=== PATIENT | female | born 1945 | race African-American/Black ===

== ENCOUNTER 2019-05-22 15:26 | Inpatient (IN) | payer MEDICARE ==
[~2019-05-22] VITALS: Ht 167.6 cm; Wt 48.8 kg
[2019-05-22] MEDS ORDERED: Omnipaque-300 100ml vial INJ PRN (15:45)
[2019-05-22] MEDS ORDERED: Piperacillin/Tazobactam 3.375 GM in NS 110 ML IVPB ONE (15:45)
[2019-05-22] MEDS ORDERED: Vancomycin 1 GM in NS 275 ML IV ONE (15:45)
--- NOTE | 2019-05-22 16:00 | NUR ---
ED Nurse Note:pt. was BIBA from SNF with possible infection and left groin dranage, she has right BKA, pt. is A/Ox2, blood and urine sent to labs, given iv fluids and antibiotics
[2019-05-22 16:30] VITALS: BP 122/68
--- NOTE | 2019-05-22 16:33 | Emergency Room Report ---
History of Present Illness General Chief Complaint: General Complaint Source: Patient Present Illness HPI 73-year-old female history of stage IV decubitus ulcer history of Alzheimer's, presents with dislodged left groin surgical drain patient with an abscess that had IR drainage, unknown if fevers or chills patient presents for surgical drain management, unknown aggravating relieving factor severity is mild, unknown start time Allergies: Coded Allergies: No Known Allergies (Unverified , 05/22/19) Patient History Limited by: medical condition - Alzheimer's Past Medical History: see triage record Reviewed Nursing Documentation: PMH: Agreed; PSxH: Agreed Nursing Documentation-PMH Past Medical History: No History, Except For Hx Hypertension: Yes Hx Diabetes: Yes Review of Systems All Other Systems: limited - Alzheimer's dementia Physical Exam Vital Signs Date Time Temp Pulse Resp B/P (MAP) Pulse Ox O2 Delivery O2 Flow Rate FiO2 05/22/19 15:27 Room Air Sp02 EP Interpretation: reviewed, normal General Appearance: alert, moderate distress, Chronically Ill Head: normocephalic, atraumatic Eyes: bilateral eye PERRL, bilateral eye EOMI ENT: uvula midline, moist mucus membranes Neck: supple, thyroid normal, supple/symm/no masses Respiratory: lungs clear, no respiratory distress, no retraction, no accessory muscle use Cardiovascular #1: normal peripheral pulses, regular rate, rhythm, no edema, no gallop, no murmur Gastrointestinal: non tender, soft, no guarding, no rebound Musculoskeletal: other - Stage IV decubitus ulcer, left groin drain partially dislodged however remains inside the skin Neurologic: alert, responsive Psychiatric: mood/affect normal Skin: no rash, warm/dry Medical Decision Making Diagnostic Impression: Primary Impression: Disruption of tissue around surgical drain Qualified Codes: T81.32XA - Disruption of internal operation (surgical) wound , not elsewhere classified, initial encounter Additional Impressions: Dehydration UTI (urinary tract infection) Qualified Codes: T83.511A - Infection and inflammatory reaction due to indwelling urethral catheter, initial encounter; N39.0 - Urinary tract infection , site not specified Abscess of groin, left ER Course 73-year-old female presents with dehydration, possible dislodged groin drain, will start broad-spectrum antibiotics and fluids Patient admitted to Dr. Lau No evidence of sepsis or endorgan dysfunction no fever no chills, heart rate is stable, however patient does have a urinary tract infection as well as his dehydration Patient also with abscess Dr. Lau aware will consult surgery PRN Laboratory Tests Test 05/22/19 15:40 White Blood Count 10.8 K/UL (4.8-10.8) Red Blood Count 4.12 M/UL (4.20-5.40) L Hemoglobin 9.9 G/DL (12.0-16.0) L Hematocrit 32.8 % (37.0-47.0) L Mean Corpuscular Volume 80 FL (80-99) Mean Corpuscular Hemoglobin 24.2 PG (27.0-31.0) L Mean Corpuscular Hemoglobin Concent 30.4 G/DL (32.0-36.0) L Red Cell Distribution Width 19.1 % (11.6-14.8) H Platelet Count 528 K/UL (150-450) H Mean Platelet Volume 5.4 FL (6.5-10.1) L Neutrophils (%) (Auto) 76.3 % (45.0-75.0) H Lymphocytes (%) (Auto) 17.8 % (20.0-45.0) L Monocytes (%) (Auto) 3.9 % (1.0-10.0) Eosinophils (%) (Auto) 1.3 % (0.0-3.0) Basophils (%) (Auto) 0.7 % (0.0-2.0) Prothrombin Time 11.0 SEC (9.30-11.50) Prothrombin Time INR 1.0 (0.9-1.1) Activated Partial Thromboplast Time 32 SEC (23-33) Urine Color Yellow Urine Appearance Cloudy Urine pH 9 (4.5-8.0) Urine Specific [place] 1.015 (1.005-1.035) Urine Protein 3+ (NEGATIVE) H Urine Glucose (UA) Negative (NEGATIVE) Urine Ketones 1+ (NEGATIVE) H Urine Blood 3+ (NEGATIVE) H Urine Nitrite Positive (NEGATIVE) H Urine Bilirubin Negative (NEGATIVE) Urine Urobilinogen Normal MG/DL (0.0-1.0) Urine Leukocyte Esterase 3+ (NEGATIVE) H Urine RBC 10-15 /HPF (0 - 2) H Urine WBC 0-2 /HPF (0 - 2) Urine Squamous Epithelial Cells None /LPF (NONE/OCC) Urine Triple Phosphate Crystals Moderate /LPF (NONE) H Urine Bacteria Many /HPF (NONE) H Sodium Level 141 MMOL/L (136-145) Potassium Level 3.7 MMOL/L (3.5-5.1) Chloride Level 103 MMOL/L (98-107) Carbon Dioxide Level 25 MMOL/L (21-32) Anion Gap 13 mmol/L (5-15) Blood Urea Nitrogen 16 mg/dL (7-18) Creatinine 0.6 MG/DL (0.55-1.30) Estimate Glomerular Filtration Rate > 60 mL/min (>60) Glucose Level 204 MG/DL (74-106) H Lactic Acid Level 2.20 mmol/L (0.4-2.0) H Calcium Level 8.7 MG/DL (8.5-10.1) Phosphorus Level 2.6 MG/DL (2.5-4.9) Magnesium Level 2.0 MG/DL (1.8-2.4) Total Bilirubin 0.2 MG/DL (0.2-1.0) Aspartate Amino Transferase (AST) 18 U/L (15-37) Alanine Aminotransferase (ALT) 18 U/L (12-78) Alkaline Phosphatase 125 U/L (46-116) H Total Creatine Kinase 22 U/L (26-308) L Troponin I 0.000 ng/mL (0.000-0.056) Pro-B-Type Natriuretic Peptide 304 pg/mL (0-125) H Total Protein 7.1 G/DL (6.4-8.2) Albumin 2.0 G/DL (3.4-5.0) L Globulin 5.1 g/dL Albumin/Globulin Ratio 0.4 (1.0-2.7) L Lipase 146 U/L (73-393) EKG Diagnostic Results EKG Time: 15:56 EP Interpretation: NSR, rate 86, QTc 428, no acute ST elevations, normal axis Rhythm Strip Diag. Results Rhythm Strip Time: 16:32 EP Interpretation: yes Rate: 87 Rhythm: NSR, no PVC's, no ectopy Chest X-Ray Diagnostic Results Chest X-Ray Diagnostic Results : Chest X-Ray Ordered: Yes # of Views/Limited/Complete: 1 View Indication: Other - Preop EP Interpretation: Yes Interpretation: no consolidation, no effusion, no pneumothorax, no acute cardiopulmonary disease Impression: No acute disease Electronically Signed by: Ahmet Yadav MD CT/MRI/US Diagnostic Results CT/MRI/US Diagnostic Results : Impression Preliminary Findings Only See Final Report For Complete Findings CT ABDOMEN & PELVIS With Contrast: Fluid collection within the left adductor musculature measuring 5.5 x 3.6 x 6.2 cm. Surrounding inflammation suggests this may represent an abscess. Moderate volume of impacted stool within the rectum with mucosal thickening and fat stranding in the presacral space, likely stercoral colitis. No perforation or pneumatosis. No acute process within the solid organs. Radiologist: Timoteo Hurst MD Study ready at 17:57 and initial results transmitted at 18:52 Last Vital Signs Date Time Temp Pulse Resp B/P (MAP) Pulse Ox O2 Delivery O2 Flow Rate FiO2 05/22/19 15:27 Room Air Disposition: ADMITTED INPATIENT Condition: Stable Referrals: Juan Lau MD (PCP) Ahmet Yadav MD May 22, 2019 16:33
[2019-05-22 16:34] LABS: BASOPHILS % (AUTO) 0.7 % (0.0-2.0); EOSINOPHILS % (AUTO) 1.3 % (0.0-3.0); HEMATOCRIT 32.8 % (37.0-47.0); HEMOGLOBIN 9.9 G/DL (12.0-16.0); LYMPHOCYTES % (AUTO) 17.8 % (20.0-45.0); MEAN CORPUSCULAR VOLUME 80 FL (80-99); MONOCYTES % (AUTO) 3.9 % (1.0-10.0); NEUTROPHILS % (AUTO) 76.3 % (45.0-75.0); PLATELET COUNT 528 K/UL (150-450); RED BLOOD COUNT 4.12 M/UL (4.20-5.40); RED CELL DISTRIBUTION WIDTH 19.1 % (11.6-14.8); WHITE BLOOD COUNT 10.8 K/UL (4.8-10.8)
[2019-05-22 16:36] LABS: APPEARANCE,URINE CLOUDY; BILIRUBIN, URINE NEGATIVE (NEGATIVE); GLUCOSE, URINE (UA) NEGATIVE (NEGATIVE); KETONES,URINE 1+ (NEGATIVE); LEUKOCYTE ESTERASE ,URINE 3+ (NEGATIVE); NITRITE,URINE POSITIVE (NEGATIVE); PH,URINE 9 (4.5-8.0); PROTEIN,URINE 3+ (NEGATIVE); UROBILINOGEN,URINE NORMAL MG/DL (0.0-1.0)
[2019-05-22 16:39] LABS: COLOR,URINE YELLOW
--- NOTE | 2019-05-22 16:43 | Diagnostic Imaging Report ---
Indication: Dyspnea Comparison: None A single view chest radiograph was obtained. Findings: No definite infiltrate or pulmonary vascular congestion identified. The heart is enlarged. The aorta is mildly enlarged consistent with atherosclerotic vascular disease. The bones are osteopenic. There are thoracic vertebral enthesophytes at multiple levels. Impression: No acute disease
[2019-05-22 16:55] LABS: ANION GAP 13 mmol/L (5-15); BLOOD UREA NITROGEN 16 mg/dL (7-18); CALCIUM 8.7 MG/DL (8.5-10.1); CARBON DIOXIDE 25 MMOL/L (21-32); CHLORIDE 103 MMOL/L (98-107); CREATININE 0.6 MG/DL (0.55-1.30); POTASSIUM 3.7 MMOL/L (3.5-5.1); SODIUM 141 MMOL/L (136-145)
--- NOTE | 2019-05-22 17:04 | NUR ---
ED Nurse Note:pt. came with sacral decube, left heel pressure sore, left lower leg vascular wound and right resurfaced BKA, wound pictures been taken and downloaded to computer
[2019-05-22 17:05] LABS: ALANINE AMINOTRANSFERASE 18 U/L (12-78); ALBUMIN/GLOBULIN RATIO 0.4 (1.0-2.7); ALKALINE PHOSPHATASE 125 U/L (46-116); ASPARTATE AMINO TRANSFERASE 18 U/L (15-37); BILIRUBIN,TOTAL 0.2 MG/DL (0.2-1.0); CREATINE KINASE 22 U/L (26-308); PHOSPHORUS 2.6 MG/DL (2.5-4.9)
[2019-05-22] MEDS ORDERED: ACETAMINOPHEN325 M1 ORAL (17:16)
[2019-05-22] MEDS ORDERED: MAGNESIUM2 GM/50 ML IV (17:16)
[2019-05-22] MEDS ORDERED: ONDANSETRON4 MG/2 M2 IVP (17:16)
--- NOTE | 2019-05-22 17:25 | NUR ---
ED Nurse Note: spoke with tricia from [facility], will fax over medlist to er
[2019-05-22] MEDS ORDERED: Morphine Sulfate 2mg/ml Inj(IV/IM USE ONLY) IVP PRN (18:15)
[2019-05-22] MEDS ORDERED: LORazepam 1mg tab ORAL PRN (18:15)
[2019-05-22 18:43] VITALS: BP 113/53
--- NOTE | 2019-05-22 18:53 | Diagnostic Imaging Report ---
Clinical Indication: Abdominal pain. Technique: No oral contrast utilized, per emergency room physician request IV administration nonionic contrast. Venous phase spiral acquisition obtained through the abdomen and pelvis. Multiplanar reconstructions were generated. Total dose length product 266 mGycm. CTDIvol(s) 5 mGy. Dose reduction achieved using automated exposure control Comparison: none Findings: In the left inferior inguinal region, there is a low-attenuation area just deep to the inguinal crease extending into the thigh which measures 6 cm transverse by 3.2 cm AP by 2.8 cm craniocaudad. This is surrounded by a thicker rim of enhancing tissue. There is also considerable infiltration of the subcutaneous fat and musculature in this area. There are a few slightly prominent lymph nodes noted. The rectum is mildly distended by stool. This measures 7.5 cm transverse. There is equivocal mild thickening of the wall. The appendix is normal. There is no evidence of diverticulosis or diverticulitis. There are midline fascial sutures noted. No small bowel distention or small bowel wall thickening. The distal esophagus, stomach, duodenum are unremarkable. No free or loculated intraperitoneal gas or fluid is evident. The liver demonstrates a subcentimeter low-attenuation lesion within segment 8 which is too small to characterize. The gallbladder is nondistended, unremarkable. Some calcifications are seen in the left hepatic lobe. No biliary ductal dilatation. The pancreas, spleen, adrenals are unremarkable. A small calculus is seen in the upper pole left renal collecting system. No ureteral calculi, hydronephrosis, or hydroureter. The bladder contains a Barrzaa catheter. A small amount of gas within the bladder lumen likely relates to the Barraza catheterization. There is some scarring in the subcutaneous fat lateral to the intertrochanteric right femur. There is generalized mild edema of both proximal thighs, particularly the left. The bones demonstrate mild lumbar dextro scoliotic deformity. There is very mild anterior offset of L4 on L5. There are mild retrosacral and retrococcygeal decubitus changes. There does appear to be advanced chronic erosive changes of the coccyx. Impression: 6 x 3.2 x 2.8 cm fluid collection in the left inguinal region, likely represents an abscess. There is evidence of surrounding cellulitis Erosive changes of the coccyx. Given only minimal surrounding inflammatory change, suspect chronic. Rectum is distended by stool. There is mild wall thickening, could indicate stercoral proctitis. Evidence of prior midline abdominal surgery Subcentimeter low-attenuation right lobe liver lesion, too small to characterize, most likely benign cyst or bile hamartoma. No further follow-up necessary Other findings as noted, including lumbar dextroscoliosis, Barraza catheter, nonobstructive left upper pole renal calculus This essentially agrees with the preliminary interpretation provided overnight by [facility], with some additional none significant findings. The CT scanner at [facility] is accredited by the [employer] and the scans are performed using protocols designed to limit radiation exposure to as low as reasonably achievable to attain images of sufficient resolution adequate for diagnostic evaluation.
--- NOTE | 2019-05-22 19:30 | NUR ---
ED Nurse Note: Patient resting comfortably, vital signs stable. Will continue to monitor.
[2019-05-22 19:53] VITALS: BP 111/51
--- NOTE | 2019-05-22 20:29 | NUR ---
ED Nurse Note: Called and rendered report to Kassi AMBROCIO.
--- NOTE | 2019-05-22 20:33 | NUR ---
NURSE NOTES: Received telephone report from CRISTÓBAL Mckinney (ED)
[2019-05-22 21:00] VITALS: BP 155/85
--- NOTE | 2019-05-22 21:00 | NUR ---
NURSE NOTES: Received pt via gurney. Pt in bed, a&ox2, in room air. No s/s of acute distress & no c/o pain. Skin check done. Noted sacral ulcer, left foot ulcer & medial left leg lesion. Left arm contracture noted. F/C intact & draining yellow urine to gravity. Left groin drain noted. IV site intact & S/L'd. Pt unable to sign belongings sheet. Oriented pt to hospital room & facility. Dr. Lau already put in admission orders for pt. Bed in lowest position, call light within reach. Will continue to monitor. Addendum: 05/23/19 at 0210 by Kassi Roberts RN CORRECTION: A&ox1 to name
--- NOTE | 2019-05-22 21:04 | NUR ---
ED Nurse Note: Patient transported to floor without incident.
[2019-05-22] MEDS: Docusate 100mg cap ORAL SCH (22:05)
[2019-05-22] MEDS: Enoxaparin 30mg Inj SUBQ SCH (22:06)
[2019-05-22] MEDS: Zoysn 3.37gm in NS 100ML IVPB SCH ×2 (22:08→22:40)
--- NOTE | 2019-05-22 22:14 | History and Physical ---
History of Present Illness General Date patient seen: May 22, 2019 Time patient seen: 18:00 Reason for Hospitalization: General ComplaintLeft groin drain malfunction Present Illness HPI Patient is referred to the ER from [facility] due to increased drainage from a L IR placed pigtail drain that was originally placed more than a month ago at OSH ( [facility] ) due to abscess colletion. The patient is demented at baseline and her DPOA is her sister Vidhya [phone] or [phone]. The patient has also a stage IV sacral ulcer and is now admitted to the hospital for surgical evaluation and management. History is limited as she is a poor historian. I spoke with the ED attending and CT abdomen and pelvis was requested along with antibiotics. ED Course: Her vital signs are stable, no hypotension or tachycardia. IV Zozyn and Vancomycin started. IVF given and lactate 2.2 Allergies: Coded Allergies: No Known Allergies (Unverified , 05/22/19) Medication History Scheduled Ondansetron* (Zofran 4 Mg/2 Ml Vial*), 4 MG IVP Q6H, (Reported) Scheduled PRN Acetaminophen* (Acetaminophen 325MG Tablet*), 650 MG ORAL Q4H PRN for For Pain, (Reported) Miscellaneous Medications Magnesium Sulfate (Magnesium Sulfate), 2 GM IV, (Reported) Patient History Healthcare decision maker Resuscitation status Advanced Directive on File Review of Systems Constitutional: Reports: see HPI Eye: Reports: no symptoms ENT: Reports: no symptoms Respiratory: Reports: no symptoms Cardiovascular: Reports: no symptoms Gastrointestinal: Reports: no symptoms Musculoskeletal: Reports: see HPI, other Skin: Reports: no symptoms Psychiatric: Reports: no symptoms Neurological: Reports: no symptoms Endocrine: Reports: no symptoms Hematologic/Lymphatic: Reports: no symptoms Physical Exam General Appearance: no apparent distress Lines, tubes and drains: peripheral HEENT: normocephalic, atraumatic Neck: non-tender Respiratory/Chest: lungs clear Breasts: no masses Cardiovascular/Chest: normal peripheral pulses Abdomen: normal bowel sounds Extremities: normal range of motion, other - LEFT GROIN PIGTAIL with drainage brownish color Skin Exam: normal pigmentation, other - sacral wound 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 Last 24 Hour Vital Signs Date Time Temp Pulse Resp B/P (MAP) Pulse Ox O2 Delivery O2 Flow Rate FiO2 05/22/19 21:04 98.8 84 15 111/51 100 Room Air 05/22/19 19:53 98.8 84 15 111/51 100 Room Air 05/22/19 18:43 98.0 76 20 113/53 99 Room Air 05/22/19 16:30 86 20 Room Air 05/22/19 16:30 86 20 122/68 97 Room Air 05/22/19 15:27 Room Air Laboratory Tests Test 05/22/19 15:40 05/22/19 17:45 White Blood Count 10.8 K/UL (4.8-10.8) Red Blood Count 4.12 M/UL (4.20-5.40) L Hemoglobin 9.9 G/DL (12.0-16.0) L Hematocrit 32.8 % (37.0-47.0) L Mean Corpuscular Volume 80 FL (80-99) Mean Corpuscular Hemoglobin 24.2 PG (27.0-31.0) L Mean Corpuscular Hemoglobin Concent 30.4 G/DL (32.0-36.0) L Red Cell Distribution Width 19.1 % (11.6-14.8) H Platelet Count 528 K/UL (150-450) H Mean Platelet Volume 5.4 FL (6.5-10.1) L Neutrophils (%) (Auto) 76.3 % (45.0-75.0) H Lymphocytes (%) (Auto) 17.8 % (20.0-45.0) L Monocytes (%) (Auto) 3.9 % (1.0-10.0) Eosinophils (%) (Auto) 1.3 % (0.0-3.0) Basophils (%) (Auto) 0.7 % (0.0-2.0) Prothrombin Time 11.0 SEC (9.30-11.50) Prothromb Time International Ratio 1.0 (0.9-1.1) Activated Partial Thromboplast Time 32 SEC (23-33) Urine Color Yellow Urine Appearance Cloudy Urine pH 9 (4.5-8.0) Urine Specific [place] 1.015 (1.005-1.035) Urine Protein 3+ (NEGATIVE) H Urine Glucose (UA) Negative (NEGATIVE) Urine Ketones 1+ (NEGATIVE) H Urine Blood 3+ (NEGATIVE) H Urine Nitrite Positive (NEGATIVE) H Urine Bilirubin Negative (NEGATIVE) Urine Urobilinogen Normal MG/DL (0.0-1.0) Urine Leukocyte Esterase 3+ (NEGATIVE) H Urine RBC 10-15 /HPF (0 - 2) H Urine WBC 0-2 /HPF (0 - 2) Urine Squamous Epithelial Cells None /LPF (NONE/OCC) Urine Triple Phosphate Crystals Moderate /LPF (NONE) H Urine Bacteria Many /HPF (NONE) H Sodium Level 141 MMOL/L (136-145) Potassium Level 3.7 MMOL/L (3.5-5.1) Chloride Level 103 MMOL/L (98-107) Carbon Dioxide Level 25 MMOL/L (21-32) Anion Gap 13 mmol/L (5-15) Blood Urea Nitrogen 16 mg/dL (7-18) Creatinine 0.6 MG/DL (0.55-1.30) Estimat Glomerular Filtration Rate > 60 mL/min (>60) Glucose Level 204 MG/DL (74-106) H Lactic Acid Level 2.20 mmol/L (0.4-2.0) H 1.70 mmol/L (0.66-2.22) Calcium Level 8.7 MG/DL (8.5-10.1) Phosphorus Level 2.6 MG/DL (2.5-4.9) Magnesium Level 2.0 MG/DL (1.8-2.4) Total Bilirubin 0.2 MG/DL (0.2-1.0) Aspartate Amino Transf (AST/SGOT) 18 U/L (15-37) Alanine Aminotransferase (ALT/SGPT) 18 U/L (12-78) Alkaline Phosphatase 125 U/L (46-116) H Total Creatine Kinase 22 U/L (26-308) L Troponin I 0.000 ng/mL (0.000-0.056) Pro-B-Type Natriuretic Peptide 304 pg/mL (0-125) H Total Protein 7.1 G/DL (6.4-8.2) Albumin 2.0 G/DL (3.4-5.0) L Globulin 5.1 g/dL Albumin/Globulin Ratio 0.4 (1.0-2.7) L Lipase 146 U/L (73-393) Microbiology Date/Time Source Procedure Growth Status 05/22/19 18:00 Rectum Received Height (Feet): 5 Height (Inches): 6.00 Weight (Pounds): 110 Medications Current Medications Medications (Trade) Dose Ordered Sig/Jules Route PRN Reason Start Time Stop Time Status Last Admin Dose Admin Acetaminophen (Tylenol) 650 mg Q4H PRN ORAL Mild Pain (Pain Scale 1-3) 05/22/19 18:15 06/21/19 18:14 Dextrose (Dextrose 50%) 25 ml Q30M PRN IV Hypoglycemia 05/22/19 18:15 06/21/19 18:14 Dextrose (Dextrose 50%) 50 ml Q30M PRN IV Hypoglycemia 05/22/19 18:15 06/21/19 18:14 Docusate Sodium (Colace) 100 mg EVERY 12 HOURS ORAL 05/22/19 21:00 06/21/19 20:59 Enoxaparin Sodium (Lovenox) 30 mg Q24H SUBQ 05/22/19 21:00 06/21/19 20:59 Famotidine (Pepcid) 20 mg BID ORAL 05/23/19 09:00 06/22/19 08:59 Iohexol (OMNIPAQUE-300 100ml) 100 ml NOW PRN INJ Radiology Procedure 05/22/19 15:45 05/24/19 15:36 Lorazepam (Ativan) 1 mg Q4H PRN ORAL For Anxiety 05/22/19 18:15 05/29/19 18:14 Morphine Sulfate (Morphine Sulfate) 2 mg Q4H PRN IVP Moderate Pain (Pain Scale 4-6) 05/22/19 18:15 05/29/19 18:14 Ondansetron HCl (Zofran) 4 mg Q6H PRN IVP Nausea & Vomiting 05/22/19 18:15 06/21/19 18:14 Piperacillin Sod/ Tazobactam Sod 3.375 gm/Sodium Chloride 110 ml @ 27.5 mls/hr EVERY 8 HOURS IVPB 05/22/19 22:00 05/27/19 21:59 Sodium Chloride 1,000 ml @ 75 mls/hr [id number] IVLG 05/22/19 21:00 06/21/19 20:59 Vancomycin HCl (Vanco rx to dose) 1 ea DAILY PRN MISC Per rx protocol 05/22/19 18:15 06/21/19 18:14 Vancomycin HCl 500 mg/Dextrose 110 ml @ 110 mls/hr Q24H IVPB 05/23/19 16:00 05/28/19 15:59 Assessment/Plan Status: stable Assessment/Plan: 73 y/o Female with dementia, admitted from SNF with increasing drainage from a subacute pigtail drain in the left groin and sacral decubitus ulcer stage IV 1. Left groin abscess CT abdomen and pelvis: Fluid collection within the left adductor musculature measuring 5.5 x 3.6 x 6.2 cm. Surrounding inflammation suggests this may represent an abscess Surgery consultation requested with Dr. Fajardo. Await input and consideration fro OR intervention vs medical management. Continue IV Zosyn and Vancomycin for now. Will discuss with surgery. AM lactate IVF 2. Dementia Supportive care 3. Sacral decubitus stage IV Will discuss with Surgery as well. 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 Supportive care 5. FULL CODE by prior DPOA discussion. Juan Lau MD May 22, 2019 22:14
[2019-05-22] MEDS ORDERED: COREG12.5 MG ORAL (22:45)
[2019-05-22] MEDS ORDERED: CRANBERRY450 M4 PO (22:45)
[2019-05-22] MEDS ORDERED: MULTIVITAMINS1 EA14 PO (22:51)
[2019-05-22] MEDS ORDERED: COLACE100 MG ORAL (22:51)
[2019-05-22] MEDS ORDERED: SENNA8.6 M2 PO (22:51)
[2019-05-22] MEDS ORDERED: FERROUS SU300 MG/5 M ORAL (22:51)
[2019-05-22] MEDS ORDERED: PERCOCET 10-321 EAC1 ORAL (22:51)
[2019-05-22] MEDS ORDERED: PROBIOTIC1 EAC2 PO (22:51)
[2019-05-22] MEDS ORDERED: VITAMIN C500 M1 ORAL (22:54)
[2019-05-22] MEDS ORDERED: ZINC50 M1 ORAL (22:54)
--- NOTE | 2019-05-22 23:00 | NUR ---
NURSE NOTES: Left msg for Dr. Lau re: pt's list of home meds. rn call center doctor called back stating Dr. Lau is no longer in their medical group. 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 Lau' office # because they don't know.
--- NOTE | 2019-05-22 23:30 | NUR ---
NURSE NOTES: Wound pics taken. #1 Sacral ulcer, #2 partial thickness left lower leg, #3 left heel unstageable wound (eschar)
[2019-05-23] VITALS: BP 122/55
[2019-05-23] MEDS ORDERED: Piperacillin/Tazobactam 2.25 GM in D5W 55 ML IV SCH ×2
--- NOTE | 2019-05-23 02:46 | NUR ---
NURSE NOTES: Initial wound assessment done; reviewed & cosigned by CRISTÓBAL Cruz.
[2019-05-23 04:00] VITALS: BP 136/62
--- NOTE | 2019-05-23 05:10 | NUR ---
NURSE NOTES: Unable to get aerobic & anaerobic sample/wound culture from left drain. Drain is a closed system. Charge nurse aware.
--- NOTE | 2019-05-23 05:11 | NUR ---
NURSE NOTES: wound culture done on left groin. Sent down to lab. Addendum: 05/23/19 at 0613 by Kassi Roberts RN PLEASE DISREGARD NOTE.
[2019-05-23 06:41] LABS: BASOPHILS % (AUTO) 0.6 % (0.0-2.0); EOSINOPHILS % (AUTO) 2.1 % (0.0-3.0); HEMATOCRIT 28.1 % (37.0-47.0); LYMPHOCYTES % (AUTO) 26.6 % (20.0-45.0); MEAN CORPUSCULAR VOLUME 79 FL (80-99); MONOCYTES % (AUTO) 6.2 % (1.0-10.0); NEUTROPHILS % (AUTO) 64.5 % (45.0-75.0); PLATELET COUNT 466 K/UL (150-450); RED BLOOD COUNT 3.54 M/UL (4.20-5.40); RED CELL DISTRIBUTION WIDTH 17.2 % (11.6-14.8); WHITE BLOOD COUNT 10.5 K/UL (4.8-10.8)
[2019-05-23 07:03] LABS: ANION GAP 11 mmol/L (5-15); BLOOD UREA NITROGEN 9 mg/dL (7-18); CALCIUM 8.4 MG/DL (8.5-10.1); CARBON DIOXIDE 23 MMOL/L (21-32); CHLORIDE 108 MMOL/L (98-107); CREATININE 0.5 MG/DL (0.55-1.30); POTASSIUM 3.3 MMOL/L (3.5-5.1); SODIUM 142 MMOL/L (136-145)
--- NOTE | 2019-05-23 07:30 | NUR ---
HAND-OFF: Report given to CRISTÓBAL [place]/CRISÓTBAL Fischer. Rounds done.
--- NOTE | 2019-05-23 07:30 | NUR ---
NURSE NOTES: Received report from Kassi AMBROCIO. Patient is awake and oriented to self only, no acute distress noted, reporting no pain. IVF running per order. Patient has multiple dressed wounds. Drain in left groin draining purulent, foul smelling drainage, unable to collect specimen for culture due to closed system, will inform MD. Olivera catheter to gravity drainage, draining cloudy, yellow urine, per report olivera catheter was inserted prior to admission, anchored to right thigh. Side rails upx3, bed low and locked, call light within reach.
[2019-05-23 08:00] VITALS: BP 148/72
[2019-05-23] MEDS: Docusate 100mg cap ORAL SCH ×2 (09:41→20:32)
--- NOTE | 2019-05-23 11:08 | NUR ---
RD ASSESSMENT & RECOMMENDATIONS SEE CARE ACTIVITY FOR COMPLETE ASSESSMENT DAILY ESTIMATED NEEDS: Needs based on Multiple wounds/ 49kg 30-40 kcals/kg 5370-3836 total kcals 1.5-2.0 g protein/kg 73-98 g total protein 25-30 mL/kg 4538-8829 total fluid mLs NUTRITION DIAGNOSIS: Increased kcal/prot intake needs R/T wound healing as evidenced by admitted w/ multiple advanced wounds, pending evaluation. CURRENT DIET:Cardiac, mech soft ground PO DIET RECOMMENDATIONS: Liberalized REGULAR/ texture per WRAPPER STEMMER HAND ADDITIONAL RECOMMENDATIONS: * Wound healing: add MVI w/ mineral 1 tab QD, Vit C 500mg BID, ZnSO4 220mg QD x 10 days Kb 1pkt BID * Ensure Enlive TID w/ meals * Consider WRAPPER [employer]MER HAND evaluation for appropriate texture * Calibrated bedscale wt for accurate CBW * Monitor lytes, replete as needed (low K)
[2019-05-23] MEDS ORDERED: Lidocaine 1% 10mg/ml/EPI 0.01mg/ml 30ml INJ SCH (11:45)
[2019-05-23 12:00] VITALS: BP 151/85
--- NOTE | 2019-05-23 12:18 | General Progress Note ---
Assessment/Plan Status: stable Assessment/Plan: 73 y/o Female with dementia, admitted from SNF with increasing drainage from a subacute pigtail drain in the left groin and sacral decubitus ulcer stage IV 1. Left groin abscess CT abdomen and pelvis: Fluid collection within the left adductor musculature measuring 5.5 x 3.6 x 6.2 cm. Surrounding inflammation suggests this may represent an abscess Surgery consultation requested with Dr. Fajardo. CT images reviewed with him in detail. Bedside evaluation and drainage if possible pending. Continue IV Zosyn and Vancomycin. Will discuss with surgery. AM lactate improved and decreased. IVF supportive care 2. Dementia Supportive care 3. Sacral decubitus stage IV Will discuss with Surgery as well. Wound care team evaluation appreciated. 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 Supportive care 5. FULL CODE by prior DPOA discussion. 6. Dysphagia? ST evaluation for diet and safety. 7. Mild hypokalemia. Replete. Subjective Date patient seen: May 23, 2019 Time patient seen: 11:30 ROS Limited/Unobtainable: Yes Constitutional: Reports: no symptoms HEENT: Reports: no symptoms Cardiovascular: Reports: no symptoms Respiratory: Reports: no symptoms Gastrointestinal/Abdominal: Reports: no symptoms Allergies: Coded Allergies: No Known Allergies (Unverified , 05/22/19) Subjective Denies any problems today. Objective Last 24 Hour Vital Signs Date Time Temp Pulse Resp B/P (MAP) Pulse Ox O2 Delivery O2 Flow Rate FiO2 05/23/19 08:00 97.0 81 18 148/72 (97) 98 05/23/19 04:00 98.0 77 20 136/62 (86) 98 05/23/19 00:58 Room Air 05/23/19 00:00 98.3 75 20 122/55 (77) 98 05/22/19 21:04 98.8 84 15 111/51 100 Room Air 05/22/19 21:00 97.8 91 21 155/85 (108) 98 05/22/19 19:53 98.8 84 15 111/51 100 Room Air 05/22/19 18:43 98.0 76 20 113/53 99 Room Air 05/22/19 16:30 86 20 Room Air 05/22/19 16:30 86 20 122/68 97 Room Air 05/22/19 15:27 Room Air Intake and Output 05/22/19 05/23/19 18:59 06:59 Intake Total 840 ml Output Total 400 ml Balance 440 ml Intake Oral 240 ml IV Total 600 ml Output Urine Total 400 ml # Voids 1 1 # Bowel Movements 1 Laboratory Tests 05/22/19 15:40: White Blood Count 10.8, Red Blood Count 4.12L, Hemoglobin 9.9L, Hematocrit 32.8L , Mean Corpuscular Volume 80, Mean Corpuscular Hemoglobin 24.2L, Mean Corpuscular Hemoglobin Concent 30.4L, Red Cell Distribution Width 19.1H, Platelet Count 528H, Mean Platelet Volume 5.4L, Neutrophils (%) (Auto) 76.3H, Lymphocytes (%) (Auto) 17.8L, Monocytes (%) (Auto) 3.9, Eosinophils (%) (Auto) 1.3, Basophils (%) (Auto) 0.7, Prothrombin Time 11.0, Prothromb Time International Ratio 1.0, Activated Partial Thromboplast Time 32, Urine Color Yellow, Urine Appearance Cloudy, Urine pH 9, Urine Specific [place] 1.015, Urine Protein 3+H, Urine Glucose (UA) Negative, Urine Ketones 1+H, Urine Blood 3 +H, Urine Nitrite PositiveH, Urine Bilirubin Negative, Urine Urobilinogen Normal , Urine Leukocyte Esterase 3+H, Urine RBC 10-15H, Urine WBC 0-2, Urine Squamous Epithelial Cells None, Urine Triple Phosphate Crystals ModerateH, Urine Bacteria ManyH, Sodium Level 141, Potassium Level 3.7, Chloride Level 103, Carbon Dioxide Level 25, Anion Gap 13, Blood Urea Nitrogen 16, Creatinine 0.6, Estimat Glomerular Filtration Rate > 60, Glucose Level 204H, Lactic Acid Level 2.20H, Calcium Level 8.7, Phosphorus Level 2.6, Magnesium Level 2.0, Total Bilirubin 0.2, Aspartate Amino Transf (AST/SGOT) 18, Alanine Aminotransferase ( ALT/SGPT) 18, Alkaline Phosphatase 125H, Total Creatine Kinase 22L, Troponin I 0.000, Pro-B-Type Natriuretic Peptide 304H, Total Protein 7.1, Albumin 2.0L, Globulin 5.1, Albumin/Globulin Ratio 0.4L, Lipase 146 05/22/19 17:45: Lactic Acid Level 1.70 05/22/19 23:00: Lactic Acid Level 1.10 05/23/19 04:50: White Blood Count 10.5, Red Blood Count 3.54L, Hemoglobin 9.0L, Hematocrit 28.1L , Mean Corpuscular Volume 79L, Mean Corpuscular Hemoglobin 25.5L, Mean Corpuscular Hemoglobin Concent 32.2, Red Cell Distribution Width 17.2H, Platelet Count 466H, Mean Platelet Volume 4.8L, Neutrophils (%) (Auto) 64.5, Lymphocytes (%) (Auto) 26.6, Monocytes (%) (Auto) 6.2, Eosinophils (%) (Auto) 2.1, Basophils (%) (Auto) 0.6, Sodium Level 142, Potassium Level 3.3L, Chloride Level 108H, Carbon Dioxide Level 23, Anion Gap 11, Blood Urea Nitrogen 9, Creatinine 0.5L, Estimat Glomerular Filtration Rate > 60, Glucose Level 83#, Lactic Acid Level 1.20, Calcium Level 8.4L, Thyroid Stimulating Hormone (TSH) 3.487 Height (Feet): 5 Height (Inches): 6.00 Weight (Pounds): 110 General Appearance: WD/WN EENT: PERRL/EOMI Neck: non-tender Cardiovascular: normal peripheral pulses, normal rate, regular rhythm Respiratory/Chest: lungs clear Abdomen: normal bowel sounds, non tender Pelvis: ulcers, other - decubitus sacral ulcer Extremities: non-tender, other - R BKA 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 sacral wound IV, Thigh wounds x 2 Juan Lau MD May 23, 2019 12:18
--- NOTE | 2019-05-23 12:43 | NUR ---
CASE MANAGEMENT: INITIAL REVIEW 73YR OLD MALE BIBA FROM [facility] CC: GENERAL COMPLAINT SI:UTI . DISRUPTION OF TISSUE AROUND SURGICAL DRAIN . GROIN ABSCESS 98.0 76 20 113/53 99% ON RA BG 204 BNP 304 H/H 9.9/32.8 PLT 528 IS:IVF NS BOLUS X1 IV ZOSYN X1 IV VANCO X1 \: 3E MED SURG UNIT DCP: [facility] WHEN STABLE CASE MANAGEMENT: REVIEW 05/22/19 SI:UTI . DISRUPTION OF TISSUE AROUND SURGICAL DRAIN . GROIN ABSCESS 97.0 81 18 148/72 98% ON RA PLT 466 H/H 9.0/28.1 IS:IVF NS@75ML/HR IV ZOSYN TID LOVENOX SQ QD \: 3E MED SURG UNIT DCP: [facility] WHEN STABLE PLAN: MONITOR DRAINAGE FROM PIGTAIL DC CATHETER ST BEDSIDE VIDEO SWALLOW CONSENT PATIENT FOR I&D OF GROIN ABSCESS
--- NOTE | 2019-05-23 13:00 | NUR ---
NURSE NOTES: Left groin drain removed by Dr. Nelson, bedside incision and drainage done and drainage site covered with 4x4 and abd pads by , specimen for culture collected, will transport to lab.
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
--- NOTE | 2019-05-23 14:02 | Operative Note - PDOC ---
Operative Note Operative Note Date of Operation/Procedure: May 23, 2019 Pre-op Diagnosis: Left groin abscess Procedure: Incision and drainage of left groin abscess with debridement of nonviable tissue Post-op Diagnosis: Left groin abscess with nonviable tissue Surgeon: Getachew Nelson MD Anesthesia: local Specimen: yes Complications: none Condition: stable Fluids: Not applicable Estimated Blood Loss: minimal Drains: none Packing: Gauze packing and dressing Implant(s) used?: No Indications for Procedure 73-year-old female with left groin abscess prior surgical intervention identified in the area as there is a suture as well as a prior drain that is now malposition. CT identified a abscess as below. Incision and drainage indicated and recommended. Consent obtained from power of senior trial attorney sister. Procedure performed at bedside Description of Procedure Patient was made comfortable the bedside with nursing staff present. Left groin is prepped draped in the same surgical fashion. Timeout was taken. Area was identified. Initial prior drain stitch was cut and drain was removed as it was malpositioned and only approximately centimeter the tip was within the skin. It it seemed to be pulled prior. Drain was removed and that area was prepped as well. Following this local anesthetic 1% lidocaine with epinephrine was infiltrated in the area of fluctuance in the left groin crease. Once appropriate anesthetic effect was achieved a fresh #15 scalpel was used and incision was made overlying the area. Once this was made it was clearly identifiable underneath that there was a fluid collection sanguinous purulent with a lot of debris and sediment. This was evacuated cultured and sent to pathology for review. Wound bed was irrigated and cleansed nonviable tissue was debrided down to healthy viable tissue using a fresh #15 scalpel and gauze for debridement as necessary. Debris was performed in the wound bed which is approximately 6 cm x 3 cm x 3 cm with good backbleeding noted. Wound was down to palpable fascia/muscle likely. Once appropriately cleansed and prepped packing dressings were applied. Patient taught procedure well. Plan for dressing changes twice daily until healed. Getachew Nelson May 23, 2019 14:01
--- NOTE | 2019-05-23 14:16 | NUR ---
NURSE NOTES:WOUND CARE NOTES:Pt presented on admission with multiple pressure injuries and contractures both upper ext, R BKA. Full thickness Sacral pressure injury(L)3cm x (W)4.3cm x (D)1cm,undermining clockwise 10-1 by 1.5cm @12o'clock. Base of wound is pink, moist and bone is visible.Small amt serous exudate. No odor noted. Additional non-blanching erythema with scattered areas of shearing periwound. R Ischium is black without induration ,but historical scars noted within black area. Surrounding non-blanching erythema without induration. Full thickness wound upper R thigh(L)1.2cm x (W)1.6cm. [place] granulation at base of wound. Edges are macerated. Hyperpigmentation periwound. Small amt non-odorous serous exudate noted. Scattered dry scabs noted to R BKA stump. No erythema noted. Full thickness wound medial L tibia (L)7.3cm x (W)1.3cm x (D)0.4cm. At proximal aspect of wound an area of fluctuance that is purple with marginal erythema noted. Wound bed is otherwise pink granulation at base of wound. Additional scarring periwound. DTPI lateral L tibia. Base of wound is indurated,purple with marginal erythema.(L)5.3cm x (W)0.9cm Non-blanching erythema without induration or fluctuance R knee.(L)1.5cm x (W)2.2cm. Non-blanching erythema without induration/fluctuance medial L malleolus. (L)1.7cm x (W)1.4cm Non-blanching erythema without induration/fluctuance lateral L malleolus (L)1cm x (W)0.8cm. Unstageable pressure injury L heel. Base of wound is necrotic,dry with erythema along borders. Periwound heel is boggy with non-blanching erythema. Tx.Plan:Cleanse Sacral wound with Saline. Apply TheraHoney. Apply Moisture Barrier Paste periwound. Cover with Optifoam drsg Daily and prn. Cleanse Wound medial L tibia with saline. Apply Therahoney. Apply Moisture Barrier Paste periwound. Cover with Optifoam drsg Daily and prn. Apply Betadine to DTPI lateral L tibia. Cover with Optifoam drsg. Change every 3 days and prn. Apply Betadine to L heel. Cover with Optifoam drsg. Change every 3 days and prn. Swab red areas R knee, Medial and Lateral malleoli with Cavilon Skin Barrier. Cover each site with Optifoam Drsg. Change every 7 days and prn. Air fluidized Mattress. Reposition at least every 2hours or as tolerated. Float L heel with pillow off mattress.
[2019-05-23] MEDS: Zoysn 3.37gm in NS 100ML IVPB SCH ×2 (14:42→22:35)
[2019-05-23 16:00] VITALS: BP 151/79
[2019-05-23] MEDS ORDERED: Vancomycin 500mg/D5W 110ml IVPB SCH ×2 (16:00)
--- NOTE | 2019-05-23 16:15 | NUR ---
PATIENT CLEARED FOR ST INTERVENTION BY CRISTÓBAL NINO. CHART REVIEWED AND D/W RN PRIOR TO DYSPHAGIA EVALUATION. PER POLST, PATIENT IS FULL CODE. HER SISTER HAS DPOA FOR MEDICAL DECISIONS. DYSPHAGIA RISK FACTORS FOR THIS 73 Y.O. PATIENT: DECREASED MENTATION/DEMENTIA, HX OF DYSPHAGIA, HARD OF HEAR, UPPER EXTREMITIES SEVERELY CONTRACTED/PATIENT TOTALLY DEPENDENT ON STAFF FOR P.O. INTAKE. NON/VERBAL/SEVERE HEARING LOSS. INITIAL IMPRESSIONS: PATIENT RECEIVED SITTING UPRIGHT IN BED. 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 PATIENT WAS ASSESSED WITH P.O. TRIALS OF PUREE, THIN, SOFT SOLID, S/S OF MODERATE OROPHARYNGEAL DYSPHAGIA WITH INCREASED ORAL PREPARATION/ORAL TRANSIT TIME, PROLONGED MASTICATION, FAIR LARYNGEAL ELEVATION, NO OVERT S/S OF ASPIRATION. DUE TO DECREASED MENTATION/DEMENTIA PATIENT IS AT RISK FOR SILENT ASPIRATION. RECOMMENDATIONS 1. MEALTIME PROTOCOL POSTED AT BEDSIDE 2. CRUSH CRUSHABLE MEDS/PRESENT IN PUREE 3. TOTAL ASSIST WITH MEALS 4. CAREFUL MONITORING OF P.O. INTAKE DUE TO NEED FOR MASSIVE WOUND HEALING (P.O. INTAKE OF BREAKFAST MEAL: 10%): (AT RISK FOR INSUFFICIENT P.O. INTAKE) 5. VIDEO SWALLOW STUDY IF NEEDED. 6. ST TO PROVIDE DYSPHAGIA MANAGEMENT, FAMILY/CAREGIVER EDUCATION, DIET TOLERANCE, ANALYZE/ADJUST DIET TEXTURE, ONGOING ASSESSMENT.
--- NOTE | 2019-05-23 18:30 | NUR ---
NURSE NOTES: Old olivera catheter removed and new olivera catheter placed per MD order. Patient tolerated well, olivera draining clear, yellow urine.
--- NOTE | 2019-05-23 19:51 | NUR ---
HAND-OFF: Report given to Kassi AMBROCIO.
--- NOTE | 2019-05-23 19:52 | NUR ---
NURSE NOTES: Received report & pt from CRISTÓBAL [place]. Pt lying in bed, a&ox1, in room air. No s/s of acute distress & no c/o pain. Noted multiple ulcers with new dressings by AM nurse. Per AM nurse, wound pics taken (sacral stage4, left heel unstageable, left lateral leg dti, left & right thigh stage 3, & left & right knee stage 1. Total of 7) Left arm contracture noted. F/C intact & draining yellow urine to gravity. IV site intact with IVF running as ordered. Left drain d/c'd by bridger earlier, now covered with dressing C/D/I.
[2019-05-23 20:00] VITALS: BP 147/47
[2019-05-23] MEDS: Vancomycin 500mg/D5W 110ml IVPB SCH ×2 (20:31)
[2019-05-23] MEDS: Enoxaparin 30mg Inj SUBQ SCH (20:32)
[2019-05-23] MEDS ORDERED: MAGNESIUM OXID400 M1 ORAL (22:54)
[2019-05-23] MEDS ORDERED: FLEET ENEMA133 M1 RC (22:54)
[2019-05-23] MEDS ORDERED: MOM30 ML ORAL (22:54)
--- NOTE | 2019-05-23 23:18 | NUR ---
TRANSFER TO FLOOR: Patient transferred to [facility] from [facility] , per MD's order. Report given to Sara, RN. Belongings and medications given to RN. Family informed of transfer. Pt in stable condition.
--- NOTE | 2019-05-23 23:20 | NUR ---
NURSE NOTES: PATIENT WAS SAFELY TRANSFERRED TO UNIT VIA HOSPITAL BED. REPORT RECEIVED FROM CRISTÓBAL MACIEL. BELONGING LIST REVIEWED AND SIGNED. PATIENT IS AWAKE, AAOX2, ON ROOM AIR, NO ACUTE DISTRESS NOTED. IV ON RIGHT FOREARM INTACT AND PATENT. MULTIPLE WOUNDS, DRESSINGS DRY AND INTACT. MAURICIO CATH IN PLACE, MAURICIO ANCHOR PRESENT, DRAINING WELL, YELLOW URINE NOTED. BED IS LOCKED AND LOW, BED ALARMS ACTIVE, SIDE RAILS UP X2 AND CALL LIGHT IS WITHIN REACH. WILL CONTINUE TO MONITOR.
[2019-05-24] VITALS: BP 161/81
--- NOTE | 2019-05-24 02:38 | NUR ---
NURSE NOTES: DRESSINGS AT I&D SITE SATURATED. REINFORCED NEW DRESSINGS.
--- NOTE | 2019-05-24 02:40 | NUR ---
NURSE NOTES: WOUND CARE PICTURES TAKEN AND UPLOADED.
[2019-05-24 04:00] VITALS: BP 134/67
--- NOTE | 2019-05-24 04:17 | NUR ---
NURSE NOTES: INFORMED BY MANAGER RESEARCH DEVELOPMENT DANISHA THAT PATIENT IS POSITIVE FOR VRE RECTUM. CALLED AND LEFT MESSAGE WITH . AWAITING FOR CALL BACK.
[2019-05-24] MEDS: Zoysn 3.37gm in NS 100ML IVPB SCH ×3 (05:16→22:09)
[2019-05-24 07:33] LABS: BASOPHILS % (AUTO) 0.7 % (0.0-2.0); EOSINOPHILS % (AUTO) 1.1 % (0.0-3.0); HEMATOCRIT 27.8 % (37.0-47.0); HEMOGLOBIN 8.9 G/DL (12.0-16.0); LYMPHOCYTES % (AUTO) 17.6 % (20.0-45.0); MEAN CORPUSCULAR VOLUME 78 FL (80-99); MONOCYTES % (AUTO) 7.6 % (1.0-10.0); PLATELET COUNT 445 K/UL (150-450); RED BLOOD COUNT 3.54 M/UL (4.20-5.40); RED CELL DISTRIBUTION WIDTH 16.9 % (11.6-14.8); WHITE BLOOD COUNT 11.1 K/UL (4.8-10.8)
--- NOTE | 2019-05-24 07:53 | NUR ---
NURSE NOTES: DR. ELENA RETURNED PHONE CALL. NO NEW ORDERS. 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
--- NOTE | 2019-05-24 07:56 | NUR ---
HAND-OFF: Report given to CRISTÓBAL GALEANA.
[2019-05-24 08:00] VITALS: BP 132/64
--- NOTE | 2019-05-24 08:00 | NUR ---
NURSE NOTES: Patient awake ,alert,respirations unlabored.IV fluids infusing as ordered.Barraza catheter is in place and draining clear yellow urine.Breakfast at bedside. will assist patient .bed alarm on,call light within reach.
[2019-05-24 08:04] LABS: ANION GAP 10 mmol/L (5-15); BLOOD UREA NITROGEN 4 mg/dL (7-18); CALCIUM 8.5 MG/DL (8.5-10.1); CARBON DIOXIDE 24 MMOL/L (21-32); CHLORIDE 106 MMOL/L (98-107); CREATININE 0.3 MG/DL (0.55-1.30); POTASSIUM 3.5 MMOL/L (3.5-5.1); SODIUM 140 MMOL/L (136-145)
[2019-05-24] MEDS: Docusate 100mg cap ORAL SCH ×2 (09:59→20:30)
[2019-05-24] MEDS ORDERED: Tubing IV Secondary IV ONE (11:57)
[2019-05-24] MEDS ORDERED: NS 275ml ONE (11:57)
[2019-05-24 12:00] VITALS: BP 146/71
--- NOTE | 2019-05-24 15:05 | General Progress Note ---
Assessment/Plan Status: stable Assessment/Plan: 73 y/o Female with dementia, admitted from SNF with increasing drainage from a subacute pigtail drain in the left groin and sacral decubitus ulcer stage IV 1. Left groin abscess CT abdomen and pelvis: Fluid collection within the left adductor musculature measuring 5.5 x 3.6 x 6.2 cm. Surrounding inflammation suggests this may represent an abscess Surgery consultation requested with Dr. Fajardo. CT images reviewed with him in detail. Bedside evaluation and drainage completed 05/22 Continue IV Zosyn and Vancomycin. Will discuss with surgery. Continue packing dressing changes. IVF supportive care 2. Dementia Supportive care 3. Sacral decubitus stage IV Will discuss with Surgery as well. Wound care team evaluation appreciated. 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 Supportive care 5. FULL CODE by prior DPOA discussion. 6. Dysphagia? ST evaluation for diet and safety. 7. Mild hypokalemia. Replete. 8. VRE colonized. Subjective Date patient seen: May 24, 2019 ROS Limited/Unobtainable: Yes Allergies: Coded Allergies: No Known Allergies (Unverified , 05/22/19) Subjective Denies any problems today. Poor historian Objective Last 24 Hour Vital Signs Date Time Temp Pulse Resp B/P (MAP) Pulse Ox O2 Delivery O2 Flow Rate FiO2 05/24/19 12:00 97.2 97 17 146/71 (96) 97 05/24/19 10:19 Room Air 05/24/19 08:00 97.1 81 18 132/64 (86) 97 05/24/19 04:00 97.1 81 18 134/67 (89) 97 05/24/19 00:00 97.4 81 18 161/81 (107) 97 05/23/19 21:00 Room Air 05/23/19 20:00 98.0 83 21 147/47 (80) 97 05/23/19 16:00 97.4 77 18 151/79 (103) 99 Intake and Output 05/23/19 05/24/19 19:00 07:00 Intake Total 1010 ml 735.0 ml Output Total 1100 ml 700 ml Balance -90 ml 35.0 ml Intake Oral 100 ml IV Total 1010 ml 635.0 ml Output Urine Total 1100 ml 700 ml # Bowel Movements 1 Laboratory Tests 05/24/19 06:10: White Blood Count 11.1H, Red Blood Count 3.54L, Hemoglobin 8.9L, Hematocrit 27.8L, Mean Corpuscular Volume 78L, Mean Corpuscular Hemoglobin 25.2L, Mean Corpuscular Hemoglobin Concent 32.1, Red Cell Distribution Width 16.9H, Platelet Count 445, Mean Platelet Volume 4.7L, Neutrophils (%) (Auto) 73.0, Lymphocytes (%) (Auto) 17.6L, Monocytes (%) (Auto) 7.6, Eosinophils (%) (Auto) 1.1, Basophils (%) (Auto) 0.7, Sodium Level 140, Potassium Level 3.5, Chloride Level 106, Carbon Dioxide Level 24, Anion Gap 10, Blood Urea Nitrogen 4L, Creatinine 0.3L, Estimat Glomerular Filtration Rate > 60, Glucose Level 81, Calcium Level 8.5 Height (Feet): 5 Height (Inches): 6.00 Weight (Pounds): 110 General Appearance: WD/WN EENT: PERRL/EOMI Neck: non-tender Cardiovascular: normal rate Respiratory/Chest: lungs clear Abdomen: normal bowel sounds, non tender Skin: other - Left inner thigh dressing and packing Juan Lau MD May 24, 2019 15:05
[2019-05-24 16:00] VITALS: BP 138/72
--- NOTE | 2019-05-24 18:08 | NUR ---
NURSE NOTES: Patient sitting up in bed , assist patient with meals,swallows without difficulty.IV fluids continue to infuse as ordered.Barraza catheter remains intact ,continue with fall risk ,bed alarm is on,call light within reach.
--- NOTE | 2019-05-24 19:21 | NUR ---
HAND-OFF: Report given to Archana AMBROCIO,aware of Fall risk.
--- NOTE | 2019-05-24 19:42 | NUR ---
NURSE NOTES: Received report from CRISTÓBAL Puga. AAO x 2, on room air. Barraza intact and secured to the leg. IV site intact and running IVF. Wound dressings intact. No acute distress noted. Bed locked, lowest position, alarm on, side rails up x 3, call light within reach.
[2019-05-24 20:00] VITALS: BP 141/75
[2019-05-24] MEDS: Vancomycin 500mg/D5W 110ml IVPB SCH ×2 (20:00)
[2019-05-24] MEDS: Enoxaparin 30mg Inj SUBQ SCH (20:37)
--- NOTE | 2019-05-24 22:07 | Surgery Progress Note ---
Surgery Progress Note Subjective Procedure Performed Incision and drainage of left groin abscess with debridement of nonviable tissue Additional Comments doing well dressings changed micro pending Objective Last 24 Hour Vital Signs Date Time Temp Pulse Resp B/P (MAP) Pulse Ox O2 Delivery O2 Flow Rate FiO2 05/24/19 21:00 Room Air 05/24/19 20:00 99.0 97 22 141/75 (97) 98 05/24/19 16:00 97.6 89 18 138/72 (94) 97 05/24/19 12:00 97.2 97 17 146/71 (96) 97 05/24/19 10:19 Room Air 05/24/19 08:00 97.1 81 18 132/64 (86) 97 05/24/19 04:00 97.1 81 18 134/67 (89) 97 05/24/19 00:00 97.4 81 18 161/81 (107) 97 I&O Intake and Output 05/23/19 05/24/19 19:00 07:00 Intake Total 1010 ml 735.0 ml Output Total 1100 ml 700 ml Balance -90 ml 35.0 ml Intake Oral 100 ml IV Total 1010 ml 635.0 ml Output Urine Total 1100 ml 700 ml # Bowel Movements 1 Dressing: dry Wound: clean Cardiovascular: RSR Respiratory: clear Abdomen: soft, non-tender, present bowel sounds Extremities: no cyanosis, other Laboratory Tests Test 05/24/19 06:10 White Blood Count 11.1 K/UL (4.8-10.8) H Red Blood Count 3.54 M/UL (4.20-5.40) L Hemoglobin 8.9 G/DL (12.0-16.0) L Hematocrit 27.8 % (37.0-47.0) L Mean Corpuscular Volume 78 FL (80-99) L Mean Corpuscular Hemoglobin 25.2 PG (27.0-31.0) L Mean Corpuscular Hemoglobin Concent 32.1 G/DL (32.0-36.0) Red Cell Distribution Width 16.9 % (11.6-14.8) H Platelet Count 445 K/UL (150-450) Mean Platelet Volume 4.7 FL (6.5-10.1) L Neutrophils (%) (Auto) 73.0 % (45.0-75.0) Lymphocytes (%) (Auto) 17.6 % (20.0-45.0) L Monocytes (%) (Auto) 7.6 % (1.0-10.0) Eosinophils (%) (Auto) 1.1 % (0.0-3.0) Basophils (%) (Auto) 0.7 % (0.0-2.0) Sodium Level 140 MMOL/L (136-145) Potassium Level 3.5 MMOL/L (3.5-5.1) Chloride Level 106 MMOL/L (98-107) Carbon Dioxide Level 24 MMOL/L (21-32) Anion Gap 10 mmol/L (5-15) Blood Urea Nitrogen 4 mg/dL (7-18) L Creatinine 0.3 MG/DL (0.55-1.30) L Estimat Glomerular Filtration Rate > 60 mL/min (>60) Glucose Level 81 MG/DL (74-106) Calcium Level 8.5 MG/DL (8.5-10.1) Assessment Post-op Diagnosis Left groin abscess with nonviable tissue Plan Problems: (1) Abscess of groin, left Assessment & Plan: 33-year-old female with left groin abscess. Prior intervention done and CT as below. Drain malpositioned and requires removal. Incision and drainage indicated recommended. Consent obtained from the patient's family member who is her power of employment law attorney Please see procedure note for details Packing and dressing twice daily We will follow with recommendations Follow-up culture Antibiotics as per In the left inferior inguinal region, there is a low-attenuation area just deep to the inguinal crease extending into the thigh which measures 6 cm transverse by 3.2 cm AP by 2.8 cm craniocaudad. This is surrounded by a thicker rim of enhancing tissue. There is also considerable infiltration of the subcutaneous fat and musculature in this area. There are a few slightly prominent lymph nodes noted. The rectum is mildly distended by stool. This measures 7.5 cm transverse. There is equivocal mild thickening of the wall. The appendix is normal. There is no evidence of diverticulosis or diverticulitis. There are midline fascial sutures noted. No small bowel distention or small bowel wall thickening. The distal esophagus, stomach, duodenum are unremarkable. No free or loculated intraperitoneal gas or fluid is evident. The liver demonstrates a subcentimeter low-attenuation lesion within segment 8 which is too small to characterize. The gallbladder is nondistended, unremarkable. Some calcifications are seen in the left hepatic lobe. No biliary ductal dilatation. The pancreas, spleen, adrenals are unremarkable. A small calculus is seen in the upper pole left renal collecting system. No ureteral calculi, hydronephrosis, or hydroureter. The bladder contains a Barraza catheter. A small amount of gas within the bladder lumen likely relates to the Barraza catheterization. There is some scarring in the subcutaneous fat lateral to the intertrochanteric right femur. There is generalized mild edema of both proximal thighs, particularly the left. The bones demonstrate mild lumbar dextro scoliotic deformity. There is very mild anterior offset of L4 on L5. There are mild retrosacral and retrococcygeal decubitus changes. There does appear to be advanced chronic erosive changes of the coccyx. Impression: 6 x 3.2 x 2.8 cm fluid collection in the left inguinal region, likely represents an abscess. There is evidence of surrounding cellulitis Erosive changes of the coccyx. Given only minimal surrounding inflammatory change, suspect chronic. Rectum is distended by stool. There is mild wall thickening, could indicate stercoral proctitis. Evidence of prior midline abdominal surgery Subcentimeter low-attenuation right lobe liver lesion, too small to characterize , most likely benign cyst or bile hamartoma. No further follow-up necessary Other findings as noted, including lumbar dextroscoliosis, Barraza catheter, nonobstructive left upper pole renal calculus (2) Dehydration (3) UTI (urinary tract infection) (4) Disruption of tissue around surgical drain Getachew Nelson May 24, 2019 22:07
[2019-05-25] VITALS: BP 154/72
[2019-05-25 04:00] VITALS: BP 156/68
[2019-05-25] MEDS: Zoysn 3.37gm in NS 100ML IVPB SCH ×3 (05:39→22:11)
--- NOTE | 2019-05-25 07:21 | NUR ---
HAND-OFF: Report given to CRISTÓBAL morfin.
--- NOTE | 2019-05-25 07:36 | NUR ---
NURSE NOTES: Patient awake and alert,respirations unlabored.IV fluids infusing as ordered.Barraza catheter is in place and draining yellow urine.breakfast at bedside will assist patient.Bed alarm is on,call light within reach.
[2019-05-25 08:00] VITALS: BP 157/73
[2019-05-25] MEDS: Docusate 100mg cap ORAL SCH ×2 (09:28→20:45)
[2019-05-25 12:00] VITALS: BP 130/64
--- NOTE | 2019-05-25 13:22 | Surgery Progress Note ---
Surgery Progress Note Subjective Procedure Performed Incision and drainage of left groin abscess with debridement of nonviable tissue Additional Comments no acute events dressings changed and less drainage improving micro noted Objective Last 24 Hour Vital Signs Date Time Temp Pulse Resp B/P (MAP) Pulse Ox O2 Delivery O2 Flow Rate FiO2 05/25/19 09:00 Room Air 05/25/19 08:00 97.3 89 20 157/73 (101) 97 05/25/19 04:00 98.2 90 20 156/68 (97) 97 05/25/19 00:00 99.7 96 22 154/72 (99) 98 05/24/19 21:00 Room Air 05/24/19 20:00 99.0 97 22 141/75 (97) 98 05/24/19 16:00 97.6 89 18 138/72 (94) 97 I&O Intake and Output 05/24/19 05/25/19 19:00 07:00 Intake Total 1730.0 ml Output Total 1000 ml 1600 ml Balance 730.0 ml -1600 ml Intake Oral 720 ml IV Total 1010.0 ml Output Urine Total 1000 ml 1600 ml # Bowel Movements 1 Dressing: saturated Wound: other Drains: other Cardiovascular: RSR Respiratory: decreased breath sounds Abdomen: soft, present bowel sounds Extremities: no cyanosis Assessment Post-op Diagnosis Left groin abscess with nonviable tissue Plan Problems: (1) Abscess of groin, left Assessment & Plan: 33-year-old female with left groin abscess. Prior intervention done and CT as below. Drain malpositioned and requires removal. Incision and drainage indicated recommended. Consent obtained from the patient's family member who is her power of assistant attorney general Please see procedure note for details Packing and dressing twice daily We will follow with recommendations Follow-up culture Antibiotics as per In the left inferior inguinal region, there is a low-attenuation area just deep to the inguinal crease extending into the thigh which measures 6 cm transverse by 3.2 cm AP by 2.8 cm craniocaudad. This is surrounded by a thicker rim of enhancing tissue. There is also considerable infiltration of the subcutaneous fat and musculature in this area. There are a few slightly prominent lymph nodes noted. The rectum is mildly distended by stool. This measures 7.5 cm transverse. There is equivocal mild thickening of the wall. The appendix is normal. There is no evidence of diverticulosis or diverticulitis. There are midline fascial sutures noted. No small bowel distention or small bowel wall thickening. The distal esophagus, stomach, duodenum are unremarkable. No free or loculated intraperitoneal gas or fluid is evident. The liver demonstrates a subcentimeter low-attenuation lesion within segment 8 which is too small to characterize. The gallbladder is nondistended, unremarkable. Some calcifications are seen in the left hepatic lobe. No biliary ductal dilatation. The pancreas, spleen, adrenals are unremarkable. A small calculus is seen in the upper pole left renal collecting system. No ureteral calculi, hydronephrosis, or hydroureter. The bladder contains a Barraza catheter. A small amount of gas within the bladder lumen likely relates to the Barraza catheterization. There is some scarring in the subcutaneous fat lateral to the intertrochanteric right femur. There is generalized mild edema of both proximal thighs, particularly the left. The bones demonstrate mild lumbar dextro scoliotic deformity. There is very mild anterior offset of L4 on L5. There are mild retrosacral and retrococcygeal decubitus changes. There does appear to be advanced chronic erosive changes of the coccyx. Impression: 6 x 3.2 x 2.8 cm fluid collection in the left inguinal region, likely represents an abscess. There is evidence of surrounding cellulitis Erosive changes of the coccyx. Given only minimal surrounding inflammatory change, suspect chronic. Rectum is distended by stool. There is mild wall thickening, could indicate stercoral proctitis. Evidence of prior midline abdominal surgery Subcentimeter low-attenuation right lobe liver lesion, too small to characterize , most likely benign cyst or bile hamartoma. No further follow-up necessary Other findings as noted, including lumbar dextroscoliosis, Barraza catheter, nonobstructive left upper pole renal calculus (2) Dehydration (3) UTI (urinary tract infection) (4) Disruption of tissue around surgical drain Getachew Nelson May 25, 2019 13:22
--- NOTE | 2019-05-25 14:50 | General Progress Note ---
Assessment/Plan Status: stable Assessment/Plan: 73 y/o Female with dementia, admitted from SNF with increasing drainage from a subacute pigtail drain in the left groin and sacral decubitus ulcer stage IV 1. Left groin abscess CT abdomen and pelvis: Fluid collection within the left adductor musculature measuring 5.5 x 3.6 x 6.2 cm. Surrounding inflammation suggests this may represent an abscess Surgery consultation with Dr. Fajardo. CT images reviewed with him in detail. Bedside evaluation and drainage completed 05/22 Continue IV Zosyn and Vancomycin. Follow up final culture result and adjust antibiotics accordingly. S. Aureus noted. Appreciate surgery involvement. Continue packing dressing changes. HL IVF 2. Dementia Supportive care 3. Sacral decubitus stage IV Will discuss with Surgery as well. Wound care team evaluation appreciated. 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 Supportive care 5. FULL CODE by prior DPOA discussion. 6. Dysphagia? ST evaluation for diet and safety. 7. Mild hypokalemia. Replete. 8. VRE colonized. Subjective Date patient seen: May 25, 2019 Time patient seen: 14:00 ROS Limited/Unobtainable: Yes Allergies: Coded Allergies: No Known Allergies (Unverified , 05/22/19) All Systems: reviewed and negative except above Subjective Denies any problems today. Poor historian Objective Last 24 Hour Vital Signs Date Time Temp Pulse Resp B/P (MAP) Pulse Ox O2 Delivery O2 Flow Rate FiO2 05/25/19 12:00 97.6 89 18 130/64 (86) 98 05/25/19 09:00 Room Air 05/25/19 08:00 97.3 84 20 157/73 (101) 97 05/25/19 04:00 98.2 90 20 156/68 (97) 97 05/25/19 00:00 99.7 96 22 154/72 (99) 98 05/24/19 21:00 Room Air 05/24/19 20:00 99.0 97 22 141/75 (97) 98 05/24/19 16:00 97.6 89 18 138/72 (94) 97 Intake and Output 05/24/19 05/25/19 19:00 07:00 Intake Total 1730.0 ml Output Total 1000 ml 1600 ml Balance 730.0 ml -1600 ml Intake Oral 720 ml IV Total 1010.0 ml Output Urine Total 1000 ml 1600 ml # Bowel Movements 1 Height (Feet): 5 Height (Inches): 6.00 Weight (Pounds): 110 General Appearance: WD/WN EENT: PERRL/EOMI Neck: normal alignment Cardiovascular: normal rate Respiratory/Chest: lungs clear Abdomen: soft Edema: trace edema Neurologic: angle bender II-XII grossly normal Juan Lau MD May 25, 2019 14:50
[2019-05-25 16:00] VITALS: BP 142/79
--- NOTE | 2019-05-25 18:00 | NUR ---
NURSE NOTES: Turned and position,dressing remains intact,olivera remains intact,call light within reach.
--- NOTE | 2019-05-25 19:44 | NUR ---
HAND-OFF: Report given to Laurie AMBROCIO,aware of fall risk status.
[2019-05-25 20:00] VITALS: BP 154/79
--- NOTE | 2019-05-25 20:00 | NUR ---
NURSE NOTES: Received patient awake and alert,respirations unlabored. No s/s of acute distress. IV fluids infusing as ordered. Barraza catheter is in place and draining yellow urine. Bed alarm is on,call light within reach.
[2019-05-25] MEDS: Vancomycin 500mg/D5W 110ml IVPB SCH ×2 (20:01)
[2019-05-25] MEDS: Enoxaparin 30mg Inj SUBQ SCH (20:46)
--- NOTE | 2019-05-25 22:00 | NUR ---
NURSE NOTES: Patient received from ED as high fall risk due to history of recent fall. Patient confused and agitated. Patient wearing yellow non slip socks, 3 side rails up. High fall risk communicated to rest of care team, room as close to nursing station as allowed based on isolation precautions. Bed alarm on. Frequent rounding for patient safety. Addendum: 05/26/19 at 0547 by Ling Olsen RN WRONG PATIENT, DISREGARD.
[2019-05-26] VITALS: BP 160/83
[2019-05-26 04:00] VITALS: BP 147/79
[2019-05-26] MEDS: Zoysn 3.37gm in NS 100ML IVPB SCH (05:14)
--- NOTE | 2019-05-26 05:47 | NUR ---
NURSE NOTES: Patient positive for MRSA in abscess drainage. Dr iSd paul.
--- NOTE | 2019-05-26 07:14 | NUR ---
NURSE NOTES: Received patient in bed awake. No SOB or acute distress. IV line on right hand intact and patent, secured with kerlix. Barraza catheter intact. HOB elevated. Bed locked in lowest position. Call light within reach. Will continue plan of care.
--- NOTE | 2019-05-26 07:21 | NUR ---
HAND-OFF: Report given to CRISTÓBAL Mendez.
[2019-05-26 08:00] VITALS: BP 167/84
[2019-05-26] MEDS ORDERED: Vancomycin 500mg/D5W 110ml IVPB SCH ×2 (08:00)
[2019-05-26 08:05] LABS: BASOPHILS % (AUTO) 0.4 % (0.0-2.0); EOSINOPHILS % (AUTO) 2.2 % (0.0-3.0); HEMATOCRIT 30.1 % (37.0-47.0); HEMOGLOBIN 9.6 G/DL (12.0-16.0); LYMPHOCYTES % (AUTO) 26.4 % (20.0-45.0); MEAN CORPUSCULAR VOLUME 79 FL (80-99); MONOCYTES % (AUTO) 5.9 % (1.0-10.0); NEUTROPHILS % (AUTO) 65.1 % (45.0-75.0); PLATELET COUNT 487 K/UL (150-450); RED BLOOD COUNT 3.82 M/UL (4.20-5.40); RED CELL DISTRIBUTION WIDTH 17.1 % (11.6-14.8); WHITE BLOOD COUNT 9.4 K/UL (4.8-10.8)
[2019-05-26 08:17] LABS: ANION GAP 10 mmol/L (5-15); BLOOD UREA NITROGEN 9 mg/dL (7-18); CALCIUM 8.8 MG/DL (8.5-10.1); CARBON DIOXIDE 27 MMOL/L (21-32); CHLORIDE 107 MMOL/L (98-107); CREATININE 0.4 MG/DL (0.55-1.30); POTASSIUM 3.5 MMOL/L (3.5-5.1); SODIUM 143 MMOL/L (136-145)
[2019-05-26] MEDS: Docusate 100mg cap ORAL SCH ×2 (10:13→20:19)
[2019-05-26 11:31] VITALS: BP 163/80
--- NOTE | 2019-05-26 12:26 | Surgery Progress Note ---
Surgery Progress Note Subjective Procedure Performed Incision and drainage of left groin abscess with debridement of nonviable tissue Additional Comments no acute events comfortable stable dressing changes going well Objective Last 24 Hour Vital Signs Date Time Temp Pulse Resp B/P (MAP) Pulse Ox O2 Delivery O2 Flow Rate FiO2 05/26/19 11:31 98.4 85 18 163/80 (107) 98 05/26/19 09:00 Room Air 05/26/19 08:00 98.0 95 18 167/84 (111) 98 05/26/19 04:00 97.8 88 21 147/79 (101) 97 05/26/19 00:00 97.4 98 20 160/83 (108) 97 05/25/19 20:53 Room Air 05/25/19 20:00 98.4 101 20 154/79 (104) 97 05/25/19 16:00 97.9 106 18 142/79 (100) 97 I&O Intake and Output 05/25/19 05/26/19 19:00 07:00 Intake Total 1245 ml Output Total 700 ml 2100 ml Balance 545 ml -2100 ml Intake Oral 720 ml IV Total 525 ml Output Urine Total 700 ml 2100 ml # Voids 2 Dressing: saturated Wound: clean Cardiovascular: RSR Respiratory: clear Abdomen: soft, non-tender, present bowel sounds Extremities: no edema, no tenderness Laboratory Tests Test 05/25/19 19:00 05/26/19 06:04 Vancomycin Level Trough 6.0 ug/mL (5.0-12.0) White Blood Count 9.4 K/UL (4.8-10.8) Red Blood Count 3.82 M/UL (4.20-5.40) L Hemoglobin 9.6 G/DL (12.0-16.0) L Hematocrit 30.1 % (37.0-47.0) L Mean Corpuscular Volume 79 FL (80-99) L Mean Corpuscular Hemoglobin 25.2 PG (27.0-31.0) L Mean Corpuscular Hemoglobin Concent 32.0 G/DL (32.0-36.0) Red Cell Distribution Width 17.1 % (11.6-14.8) H Platelet Count 487 K/UL (150-450) H Mean Platelet Volume 4.7 FL (6.5-10.1) L Neutrophils (%) (Auto) 65.1 % (45.0-75.0) Lymphocytes (%) (Auto) 26.4 % (20.0-45.0) Monocytes (%) (Auto) 5.9 % (1.0-10.0) Eosinophils (%) (Auto) 2.2 % (0.0-3.0) Basophils (%) (Auto) 0.4 % (0.0-2.0) Sodium Level 143 MMOL/L (136-145) Potassium Level 3.5 MMOL/L (3.5-5.1) Chloride Level 107 MMOL/L (98-107) Carbon Dioxide Level 27 MMOL/L (21-32) Anion Gap 10 mmol/L (5-15) Blood Urea Nitrogen 9 mg/dL (7-18) Creatinine 0.4 MG/DL (0.55-1.30) L Estimat Glomerular Filtration Rate > 60 mL/min (>60) Glucose Level 81 MG/DL (74-106) Calcium Level 8.8 MG/DL (8.5-10.1) Assessment Post-op Diagnosis Left groin abscess with nonviable tissue Plan Problems: (1) Abscess of groin, left Assessment & Plan: 33-year-old female with left groin abscess. Prior intervention done and CT as below. Drain malpositioned and requires removal. Incision and drainage indicated recommended. Consent obtained from the patient's family member who is her power of contracts attorney Please see procedure note for details Packing and dressing twice daily We will follow with recommendations Follow-up culture - MRSA Antibiotics as per In the left inferior inguinal region, there is a low-attenuation area just deep to the inguinal crease extending into the thigh which measures 6 cm transverse by 3.2 cm AP by 2.8 cm craniocaudad. This is surrounded by a thicker rim of enhancing tissue. There is also considerable infiltration of the subcutaneous fat and musculature in this area. There are a few slightly prominent lymph nodes noted. The rectum is mildly distended by stool. This measures 7.5 cm transverse. There is equivocal mild thickening of the wall. The appendix is normal. There is no evidence of diverticulosis or diverticulitis. There are midline fascial sutures noted. No small bowel distention or small bowel wall thickening. The distal esophagus, stomach, duodenum are unremarkable. No free or loculated intraperitoneal gas or fluid is evident. The liver demonstrates a subcentimeter low-attenuation lesion within segment 8 which is too small to characterize. The gallbladder is nondistended, unremarkable. Some calcifications are seen in the left hepatic lobe. No biliary ductal dilatation. The pancreas, spleen, adrenals are unremarkable. A small calculus is seen in the upper pole left renal collecting system. No ureteral calculi, hydronephrosis, or hydroureter. The bladder contains a Barraza catheter. A small amount of gas within the bladder lumen likely relates to the Barraza catheterization. There is some scarring in the subcutaneous fat lateral to the intertrochanteric right femur. There is generalized mild edema of both proximal thighs, particularly the left. The bones demonstrate mild lumbar dextro scoliotic deformity. There is very mild anterior offset of L4 on L5. There are mild retrosacral and retrococcygeal decubitus changes. There does appear to be advanced chronic erosive changes of the coccyx. Impression: 6 x 3.2 x 2.8 cm fluid collection in the left inguinal region, likely represents an abscess. There is evidence of surrounding cellulitis Erosive changes of the coccyx. Given only minimal surrounding inflammatory change, suspect chronic. Rectum is distended by stool. There is mild wall thickening, could indicate stercoral proctitis. Evidence of prior midline abdominal surgery Subcentimeter low-attenuation right lobe liver lesion, too small to characterize , most likely benign cyst or bile hamartoma. No further follow-up necessary Other findings as noted, including lumbar dextroscoliosis, Barraza catheter, nonobstructive left upper pole renal calculus (2) Dehydration (3) UTI (urinary tract infection) (4) Disruption of tissue around surgical drain Getachew Nelson May 26, 2019 12:26
[2019-05-26] MEDS ORDERED: HydrALAZINE 10mg Tab ORAL PRN (12:45)
--- NOTE | 2019-05-26 12:46 | General Progress Note ---
Assessment/Plan Status: stable Assessment/Plan: 73 y/o Female with dementia, admitted from SNF with increasing drainage from a subacute pigtail drain in the left groin and sacral decubitus ulcer stage IV 1. Left groin abscess with MRSA per culture. Continue IV Vancomycin ( sensitive per cx data ) ID consulted for length of therapy and choice of antibiotic. Dr. Rebolledo. CT abdomen and pelvis: Fluid collection within the left adductor musculature measuring 5.5 x 3.6 x 6.2 cm. Surrounding inflammation suggests this may represent an abscess Surgery consultation with Dr. Fajardo. CT images reviewed with him in detail. Bedside evaluation and drainage completed 05/22 Continue IV Zosyn ( stopped 05/24 ) and Vancomycin continued. Continue packing dressing changes. HL IVF 2. Dementia Supportive care 3. Sacral decubitus stage IV Will discuss with Surgery as well. Wound care team evaluation appreciated. 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 Supportive care 5. FULL CODE by prior DPOA discussion. 6. Dysphagia? ST evaluation for diet and safety. 7. Mild hypokalemia. Replete. 8. VRE colonized. 9. Uncontrolled hypertension. Start metoprolol and add hydralazine PRN sbp > 160 10. Disposition SNF resident at [facility] Subjective Date patient seen: May 26, 2019 Time patient seen: 12:50 ROS Limited/Unobtainable: Yes Allergies: Coded Allergies: No Known Allergies (Unverified , 05/22/19) All Systems: reviewed and negative except above Subjective Denies any problems today. Poor historian Objective Last 24 Hour Vital Signs Date Time Temp Pulse Resp B/P (MAP) Pulse Ox O2 Delivery O2 Flow Rate FiO2 05/26/19 11:31 98.4 85 18 163/80 (107) 98 05/26/19 09:00 Room Air 05/26/19 08:00 98.0 95 18 167/84 (111) 98 05/26/19 04:00 97.8 88 21 147/79 (101) 97 05/26/19 00:00 97.4 98 20 160/83 (108) 97 05/25/19 20:53 Room Air 05/25/19 20:00 98.4 101 20 154/79 (104) 97 05/25/19 16:00 97.9 106 18 142/79 (100) 97 Intake and Output 05/25/19 05/26/19 19:00 07:00 Intake Total 1245 ml Output Total 700 ml 2100 ml Balance 545 ml -2100 ml Intake Oral 720 ml IV Total 525 ml Output Urine Total 700 ml 2100 ml # Voids 2 Laboratory Tests 05/25/19 19:00: Vancomycin Level Trough 6.0 05/26/19 06:04: White Blood Count 9.4, Red Blood Count 3.82L, Hemoglobin 9.6L, Hematocrit 30.1L , Mean Corpuscular Volume 79L, Mean Corpuscular Hemoglobin 25.2L, Mean Corpuscular Hemoglobin Concent 32.0, Red Cell Distribution Width 17.1H, Platelet Count 487H, Mean Platelet Volume 4.7L, Neutrophils (%) (Auto) 65.1, Lymphocytes (%) (Auto) 26.4, Monocytes (%) (Auto) 5.9, Eosinophils (%) (Auto) 2.2, Basophils (%) (Auto) 0.4, Sodium Level 143, Potassium Level 3.5, Chloride Level 107, Carbon Dioxide Level 27, Anion Gap 10, Blood Urea Nitrogen 9, Creatinine 0.4L, Estimat Glomerular Filtration Rate > 60, Glucose Level 81, Calcium Level 8.8 Height (Feet): 5 Height (Inches): 6.00 Weight (Pounds): 110 General Appearance: WD/WN, no apparent distress EENT: PERRL/EOMI Neck: non-tender Cardiovascular: normal rate Respiratory/Chest: lungs clear Abdomen: non tender, no organomegaly, no mass Extremities: non-tender, other - L groin packing in place 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
[2019-05-26 15:55] VITALS: BP 158/98
--- NOTE | 2019-05-26 17:04 | NUR ---
CASE MANAGEMENT: REVIEW 05/26/19 SI:S/P I&D 05/23/19 UTI . DISRUPTION OF TISSUE AROUND SURGICAL DRAIN . GROIN ABSCESS 974 98 20 160/83 97% ON RA PLT 487 H/H 9.09/15.1 IS:IVF NS@75ML/HR LOVENOX SQ QD \: 3E MED SURG UNIT DCP: JUN GONZALEZ WHEN STABLE PLAN: PIGTAIL REMOVED ST BEDSIDE VIDEO SWALLOW CONSENT PATIENT FOR I&D OF GROIN ABSCESS MONITOR H/H LEVELS
--- NOTE | 2019-05-26 19:30 | NUR ---
HAND-OFF: Report given to mendoza.
[2019-05-26] MEDS: Vancomycin 1 GM in NS 275 ML IVPB SCH (19:39)
--- NOTE | 2019-05-26 19:52 | NUR ---
NURSE NOTES: Dr Aguirre at bedside, assessed patient's abscess wound and drainage. IV access patent, olivera catheter intact draining clear yellow urine. Patient able to follow simple commands, no s/s of acute distress.
[2019-05-26 20:00] VITALS: BP 142/76
[2019-05-26] MEDS: Enoxaparin 30mg Inj SUBQ SCH (20:20)
--- NOTE | 2019-05-26 20:34 | Infectious Diseases Prog Note ---
Assessment/Plan Assessment/Plan Full consult dictated: A) 1) mrsa left groin abscess/cellulitis, proteus uti, ? sepsis, leukocytosis, elevated lactic acid 2) vre colonization 3) allergies - nkda 4) pmh noted P) 1) vancomycin and rocephin 2) can discharge on bactrim x 5 days - 1DS table po bid 3) monitor labs 4) thank you Subjective Allergies: Coded Allergies: No Known Allergies (Unverified , 05/22/19) Objective Vital Signs Last 24 Hour Vital Signs Date Time Temp Pulse Resp B/P (MAP) Pulse Ox O2 Delivery O2 Flow Rate FiO2 05/26/19 15:55 98.4 85 18 158/98 (118) 98 05/26/19 11:31 98.4 85 18 163/80 (107) 98 05/26/19 09:00 Room Air 05/26/19 08:00 98.0 95 18 167/84 (111) 98 05/26/19 04:00 97.8 88 21 147/79 (101) 97 05/26/19 00:00 97.4 98 20 160/83 (108) 97 05/25/19 20:53 Room Air Height (Feet): 5 Height (Inches): 6.00 Weight (Pounds): 110 Laboratory Tests Test 05/26/19 06:04 White Blood Count 9.4 K/UL (4.8-10.8) Red Blood Count 3.82 M/UL (4.20-5.40) L Hemoglobin 9.6 G/DL (12.0-16.0) L Hematocrit 30.1 % (37.0-47.0) L Mean Corpuscular Volume 79 FL (80-99) L Mean Corpuscular Hemoglobin 25.2 PG (27.0-31.0) L Mean Corpuscular Hemoglobin Concent 32.0 G/DL (32.0-36.0) Red Cell Distribution Width 17.1 % (11.6-14.8) H Platelet Count 487 K/UL (150-450) H Mean Platelet Volume 4.7 FL (6.5-10.1) L Neutrophils (%) (Auto) 65.1 % (45.0-75.0) Lymphocytes (%) (Auto) 26.4 % (20.0-45.0) Monocytes (%) (Auto) 5.9 % (1.0-10.0) Eosinophils (%) (Auto) 2.2 % (0.0-3.0) Basophils (%) (Auto) 0.4 % (0.0-2.0) Sodium Level 143 MMOL/L (136-145) Potassium Level 3.5 MMOL/L (3.5-5.1) Chloride Level 107 MMOL/L (98-107) Carbon Dioxide Level 27 MMOL/L (21-32) Anion Gap 10 mmol/L (5-15) Blood Urea Nitrogen 9 mg/dL (7-18) Creatinine 0.4 MG/DL (0.55-1.30) L Estimat Glomerular Filtration Rate > 60 mL/min (>60) Glucose Level 81 MG/DL (74-106) Calcium Level 8.8 MG/DL (8.5-10.1) Current Medications Medications (Trade) Dose Ordered Sig/Jules Route PRN Reason Start Time Stop Time Status Last Admin Dose Admin Acetaminophen (Tylenol) 650 mg Q4H PRN ORAL Mild Pain (Pain Scale 1-3) 05/22/19 18:15 06/21/19 18:14 Dextrose (Dextrose 50%) 25 ml Q30M PRN IV Hypoglycemia 05/22/19 18:15 06/21/19 18:14 Dextrose (Dextrose 50%) 50 ml Q30M PRN IV Hypoglycemia 05/22/19 18:15 06/21/19 18:14 Docusate Sodium (Colace) 100 mg EVERY 12 HOURS ORAL 05/22/19 21:00 06/21/19 20:59 05/26/19 10:13 Enoxaparin Sodium (Lovenox) 30 mg Q24H SUBQ 05/22/19 21:00 06/21/19 20:59 05/25/19 20:46 Famotidine (Pepcid) 20 mg BID ORAL 05/23/19 09:00 06/22/19 08:59 05/26/19 19:12 Hydralazine HCl (Apresoline) 10 mg Q6HR PRN ORAL sbp > 160 05/26/19 12:45 06/25/19 12:44 Lorazepam (Ativan) 1 mg Q4H PRN ORAL For Anxiety 05/22/19 18:15 05/29/19 18:14 Metoprolol Tartrate (Lopressor) 25 mg Q12HR ORAL 05/26/19 21:00 06/25/19 20:59 Morphine Sulfate (Morphine Sulfate) 2 mg Q4H PRN IVP Moderate Pain (Pain Scale 4-6) 05/22/19 18:15 05/29/19 18:14 05/24/19 00:24 Ondansetron HCl (Zofran) 4 mg Q6H PRN IVP Nausea & Vomiting 05/22/19 18:15 06/21/19 18:14 Sodium Chloride 1,000 ml @ 50 mls/hr Q20H IVLG 05/25/19 21:00 06/21/19 20:59 05/26/19 16:17 Vancomycin HCl (Vanco rx to dose) 1 ea DAILY PRN MISC Per rx protocol 05/22/19 18:15 06/21/19 18:14 Vancomycin HCl 1 gm/Sodium Chloride 275 ml @ 183.708 mls/hr Q24H IVPB 05/26/19 20:00 05/31/19 19:59 05/26/19 19:39 Flo Pearl MD May 26, 2019 20:34
[2019-05-26] MEDS: cefTRIAXone 1 GM in D5W 50 ML IVPB SCH (21:25)
[2019-05-27] VITALS: BP 147/81
[2019-05-27 04:00] VITALS: BP 142/79
--- NOTE | 2019-05-27 05:15 | Consultation ---
DATE OF CONSULTATION: 05/26/2019 INFECTIOUS DISEASE CONSULTATION CONSULTING PHYSICIAN: Flo Pearl M.D. ATTENDING PHYSICIAN: Juan Lau M.D. REFERRING PHYSICIAN: Juan Lau M.D. REASON FOR CONSULTATION: MRSA left groin abscess, Proteus urinary tract infection, sepsis, lactic acid, and leukocytosis. CHIEF COMPLAINT: The patient's chief complaint coming in to the hospital is drain malfunction. HISTORY OF PRESENT ILLNESS: This is a 73-year-old female, who comes in to [facility] with left IR placed pigtail drain that was placed more than a month ago at an outside facility. This was because of an abscess collection. CT scan of the abdomen and pelvis showed fluid collection in the left inguinal region, likely representing an abscess with cellulitis. The patient was being seen by Surgery, Dr. Nelson who did a drainage of the left groin abscess. The patient had incision and drainage of the left groin or left inguinal abscess that was done on May 23, 2019. Culture of the left inguinal groin abscess has grown out MRSA. The patient also had a Proteus urinary tract infection, likely complicated urinary tract infection with elevated white count that was mild, but also elevated lactic acid, which also could be secondary to methicillin-resistant Staphylococcus aureus left groin abscess. It is unclear to me per Surgery notes. It looks like the patient did have a drain that was malpositioned and looks like it was removed. MAR was noted and case communicated with Dr. Lau and Dr. Nelson. The patient currently is on vancomycin. She was on vancomycin and Zosyn. However, I placed her on vancomycin and Rocephin, the vancomycin for the methicillin-resistant Staphylococcus aureus abscess and the Rocephin for the Proteus urinary tract infection. The patient is not a very good historian. Case was discussed with RN, who examined the patient at the bedside. REVIEW OF SYSTEMS: CONSTITUTIONAL: The patient has a Barraza. She is responsive, not a very good historian. She has no fever or chills. No night sweats mentioned. HEAD AND NECK: No head pain, neck pain, headache, neck stiffness, thrush, or dysphagia. CARDIAC: No chest pain. GASTROINTESTINAL: No nausea, vomiting, abdominal pain, or diarrhea. GENITOURINARY: She has a Barraza. PULMONARY: No significant congestion or shortness of breath. Mild secretions. SKIN: No rash. She has left groin or inguinal abscess. No other rash noted. Wounds were reviewed and noted. EXTREMITY: No pain. NEUROLOGIC: No seizures. Generalized fatigue. No new focal weakness. She has contractures. PAST MEDICAL HISTORY: The patient's past medical history includes the following. The patient has a history of multiple wounds. She has a history of left IR pigtail drain for a month I believe because of the abscess collection. She has a history of left groin inguinal abscess. She has a history of multiple wounds. Other past medical history includes history of hypertension and diabetes. She also history of Alzheimer's and dementia. ALLERGIES: No known drug allergies. No antibiotic allergies. SOCIAL HISTORY: Negative for smoking, alcohol, or drug abuse. FAMILY HISTORY: Noncontributory. There is no mention of exposure to tuberculosis or cancer. MEDICATIONS: Upon reviewing the MAR, she is on the following medications. She is on metoprolol and vancomycin. She was on vancomycin and Zosyn. Zosyn was discontinued. Metoprolol and vancomycin per pharmacy dosing, intravenous fluids, famotidine, enoxaparin, docusate, acetaminophen, morphine, Zofran, and lorazepam. Outside medications were noted and reconciliated. PHYSICAL EXAMINATION: VITAL SIGNS: Temperature 98.4, pulse 85, respiratory rate 18, blood pressure 150/98, and saturation 98%. Pulse rate has been as high as 106 and respiratory rate has been as high as 21. GENERAL: Alert and responsive, weak, poor historian. HEAD AND NECK: Oral exam, no thrush. Eye exam, no icterus. Normocephalic. Neck is supple. No JVD. No icterus or thrush. HEART: Regular. No gallop or murmur. No friction rub. ABDOMEN: Soft. Positive bowel sounds. Nontender. LUNGS: Clear bilaterally. No rhonchi or rales. SKIN: No obvious maculopapular rash. Wounds were all reviewed and noted. Most extensive is the sacral wound. MUSCULOSKELETAL: It looks like she has contractures. Legs are without cellulitis. PERIPHERAL VASCULAR: No gangrene. Left groin area was examined with the RN. This is left inguinal groin area and the abscess looks like it has been packed. Mild cellulitis noted and swelling. PERIPHERAL VASCULAR: No gangrene. GENITOURINARY: She has a Barraza. Urine is slightly cloudy. LINE SITES: Without phlebitis. NEUROLOGIC: Alert and responsive. Not a very good historian. LABORATORY AND DIAGNOSTIC DATA: Laboratory data is as follows. White count 9.4 and hemoglobin 9.6. White count yesterday was 11.1. Creatinine is 0.4. Potassium 3.5. UA had positive nitrite, 3+ leukocyte esterase, and many bacteria. CULTURES: Urine culture grew out greater than 100,000 Proteus mirabilis, pansensitive including Bactrim and cephalosporins. Vancomycin-resistant enterococcus screen is positive. The abscess culture from May 23, 2019 from the surgery shows MRSA or Staph aureus. IMAGING STUDIES: Chest x-ray showed no active disease or no acute disease. CT scan of the abdomen and pelvis showed the following. It showed fluid collection in the left inguinal region, likely representing abscess. Erosive changes in the coccyx, report was noted. ASSESSMENT AND PLAN: 1. The patient has a left groin/inguinal abscess status post incision and drainage on May 23, 2019. It looks like she also had a drain in that area from the outside facility. It is unclear of the details of that. The drain was removed. I believe the drain was removed by Surgery. At this time, I will continue vancomycin. This is day #4 of antibiotics post incision and drainage of the MRSA which was including May 23, 2019. The patient will need approximately 10 to 14 days of treatment post drainage of the abscess to treat the MRSA abscess and cellulitis. Since she has had this issue for quite some time, I would go on a longer course instead of just 5-day course. At this time, can also transition to oral antibiotics and a good choice to be Bactrim since the kidney function is good and also is resistant to doxycycline. I would give Bactrim for approximately 5 to 7 days, maybe consider longer course of the Bactrim would be of 7 days. Case was communicated with the primary doctor, Dr. Juan Lau and Dr. Nelson any Dr. Nelson is okay with getting oral antibiotics at this time upon discharge. Given cultures, give oral antibiotics at this time. 2. The patient has Proteus urinary tract infection. Continue Rocephin for now. The Bactrim will also cover the Proteus urinary tract infection and again complicated urinary tract infection with elevated white count. 3. Elevated lactic acid and white count and SIRS criteria and possible sepsis. 4. VRE colonization. 5. Diabetes. 6. Hypertension. 7. Diabetes and hypertension. Continue treatment per primary care team. 8. Alzheimer. 9. Dementia. 10. The patient also is anemic. 11. No known allergies. 12. Social history is negative. 13. Family history is noncontributory. 14. MAR is noted. 15. Case was discussed with RN. Flo Pearl M.D. DR: KRYSTAL JOB#: [id number] CC:
--- NOTE | 2019-05-27 05:30 | Consultation ---
DATE OF CONSULTATION: 05/26/2019 ADDENDUM I have reviewed the patient's wounds, and most importantly for these wounds, there is good local wound care per Surgery recommendations and also per protocol. Long-term antibiotics would not be very helpful and that local wound care is really the most important thing to do at this time. Flo Pearl M.D. DR: KRYSTAL JOB#: [id number] CC:
[2019-05-27 06:59] LABS: ANION GAP 7 mmol/L (5-15); BLOOD UREA NITROGEN 12 mg/dL (7-18); CALCIUM 8.6 MG/DL (8.5-10.1); CARBON DIOXIDE 27 MMOL/L (21-32); CHLORIDE 106 MMOL/L (98-107); CREATININE 0.4 MG/DL (0.55-1.30); POTASSIUM 3.8 MMOL/L (3.5-5.1); SODIUM 140 MMOL/L (136-145)
--- NOTE | 2019-05-27 07:10 | NUR ---
HAND-OFF: Report given to CRISTÓBAL Mendez.
[2019-05-27 07:12] LABS: BASOPHILS % (AUTO) 0.4 % (0.0-2.0); EOSINOPHILS % (AUTO) 1.4 % (0.0-3.0); HEMATOCRIT 29.7 % (37.0-47.0); HEMOGLOBIN 9.4 G/DL (12.0-16.0); LYMPHOCYTES % (AUTO) 21.5 % (20.0-45.0); MEAN CORPUSCULAR VOLUME 79 FL (80-99); NEUTROPHILS % (AUTO) 71.7 % (45.0-75.0); PLATELET COUNT 514 K/UL (150-450); RED BLOOD COUNT 3.76 M/UL (4.20-5.40); RED CELL DISTRIBUTION WIDTH 16.9 % (11.6-14.8)
--- NOTE | 2019-05-27 07:50 | NUR ---
NURSE NOTES: Received patient in bed awake. No SOB or acute distress. IV line intact. Wound dressings intact. Left inguinal wound packing stuck as endorsed by night RN, will refer to Dr Nelson today. HOB elevated. Bed locked in lowest position. Call light within reach. Will continue plan of care.
--- NOTE | 2019-05-27 07:58 | NUR ---
NURSE NOTES: Seen by Dr Nelson, left inguinal dressing changed.
[2019-05-27 08:00] VITALS: BP 141/82
[2019-05-27] MEDS: Docusate 100mg cap ORAL SCH ×2 (09:10→21:40)
--- NOTE | 2019-05-27 10:41 | General Progress Note ---
Assessment/Plan Status: stable Assessment/Plan: 73 y/o Female with dementia, admitted from SNF with increasing drainage from a subacute pigtail drain in the left groin and sacral decubitus ulcer stage IV 1. Left groin abscess with MRSA per culture. Continue IV Vancomycin ( sensitive per cx data ) ID consulted for length of therapy and choice of antibiotic. Dr. Rebolledo. Plan is for Bactrim DS at discharge for 7 more days. Packing is SOILED TODAY. DISCUSSED WITH SURGERY AND WILL MONITOR ONE MORE DAY. DRESSING PACKING CHANGES BID AND NEEDED. DISCUSSED WITH RADHA RN. CT abdomen and pelvis: Fluid collection within the left adductor musculature measuring 5.5 x 3.6 x 6.2 cm. Surrounding inflammation suggests this may represent an abscess Surgery consultation with Dr. Fajardo. CT images reviewed with him in detail. Bedside evaluation - REMOVAL OF PRIOR PIGTAIL AT OSH and drainage completed 05/22 IV Zosyn ( stopped 05/24 ) and Vancomycin continued. Continue packing dressing changes. HL IVF 2. Dementia Supportive care 3. Sacral decubitus stage IV Will discuss with Surgery as well. Wound care team evaluation appreciated. 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 Supportive care 5. FULL CODE by prior DPOA discussion. 6. Dysphagia? ST evaluation for diet and safety. 7. Mild hypokalemia. Replete. 8. VRE colonized. 9. Uncontrolled hypertension. Start metoprolol and add hydralazine PRN sbp > 160 10. Disposition SNF resident at [facility], POSSIBLY TOMORROW Subjective Date patient seen: May 27, 2019 Time patient seen: 10:20 ROS Limited/Unobtainable: Yes Allergies: Coded Allergies: No Known Allergies (Unverified , 05/22/19) Subjective Denies any problems today. Poor historian Objective Last 24 Hour Vital Signs Date Time Temp Pulse Resp B/P (MAP) Pulse Ox O2 Delivery O2 Flow Rate FiO2 05/27/19 09:10 65 141/82 05/27/19 08:00 97.7 65 18 141/82 (101) 95 05/27/19 04:00 98.0 93 20 142/79 (100) 98 05/27/19 00:00 98.1 97 18 147/81 (103) 98 05/26/19 21:01 Room Air 05/26/19 20:19 85 158/98 05/26/19 20:00 98.0 102 18 142/76 (98) 98 05/26/19 15:55 98.4 85 18 158/98 (118) 98 05/26/19 11:31 98.4 85 18 163/80 (107) 98 Intake and Output 05/26/19 05/27/19 19:00 07:00 Intake Total 1080 ml Output Total 1800 ml 850 ml Balance -720 ml -850 ml Intake Oral 1080 ml Output Urine Total 1800 ml 850 ml Laboratory Tests 05/27/19 05:30: White Blood Count 11.0H, Red Blood Count 3.76L, Hemoglobin 9.4L, Hematocrit 29.7L, Mean Corpuscular Volume 79L, Mean Corpuscular Hemoglobin 25.1L, Mean Corpuscular Hemoglobin Concent 31.8L, Red Cell Distribution Width 16.9H, Platelet Count 514H, Mean Platelet Volume 4.7L, Neutrophils (%) (Auto) 71.7, Lymphocytes (%) (Auto) 21.5, Monocytes (%) (Auto) 5.0, Eosinophils (%) (Auto) 1.4, Basophils (%) (Auto) 0.4, Sodium Level 140, Potassium Level 3.8, Chloride Level 106, Carbon Dioxide Level 27, Anion Gap 7, Blood Urea Nitrogen 12, Creatinine 0.4L, Estimat Glomerular Filtration Rate > 60, Glucose Level 85, Calcium Level 8.6 Height (Feet): 5 Height (Inches): 6.00 Weight (Pounds): 110 General Appearance: WD/WN, no apparent distress EENT: PERRL/EOMI Cardiovascular: normal rate Respiratory/Chest: lungs clear Abdomen: normal bowel sounds, non tender Extremities: other - Left groin with open wound/packing in place and soiled after being changed 2 hours ago by surgery Neurologic: deck supervisor II-XII grossly normal Juan Lau MD May 27, 2019 10:41
[2019-05-27 12:00] VITALS: BP 159/75
--- NOTE | 2019-05-27 13:06 | NUR ---
ST NOTES: SWALLOW STATUS: PATIENT SEEN FOR DYSPHAGIA, NOT HUNGRY FOR PO TRIALS. VERY SQUAXIN AND DIFFICULT TO HEAR ASPIRATION PRECAUTIONS. PER RD, PT STILL ON ADMISSION DIET OF MECH SOFT GROUND AND THIN LIQUIDS (FULL LIQUID AN ERROR). Nadege RENO UROLOGY PHYSICIAN ASSISTANT WROTE ON ASPIRATION PRECAUTIONS SIGN OF 05/23/19 POST EVAL MECH SOFT CHOPPED AND THIN LIQUIDS; HOWEVER, THE DIET WAS NOT UPGRADED FROM MECH SOFT GROUND (TO CHOPPED) AND THE RD CALLED TO CLARIFY DIET TYPE. SINCE THE PATIENT HAD ORAL RESIDUE WITH MECH SOFT GROUND DIET AND INTAKE POOR AT TIMES 25% ON THIS DIET, WILL DOWNGRADE PATIENT TO PUREED AND CONTINUE WITH THIN LIQUIDS FOR NOW (CXR LUNGS ARE CLEAR) USING UPDATED AND POSTED ASPIRATION/PRECAUTIONS. WILL ALSO CHANGE DIET TYPE TO REGULAR (ON CARDIAC) PER RD RECOMMENDATIONS TO LIBERALIZE DIET AND SEND HIGH CALORIE SUPPLEMENTS PER RD RECOMMENDATIONS. STAFF EDUCATED/TRAINED (MIKE AND MALT SPECIFICATIONS CONTROL ASSISTANT SINCE RADHA RN NOT AVAILABLE) IN POSTED ASPIRATION AND REFLUX PRECAUTIONS. PER ENGRAVER STEEL PLATE, PATIENT DID NOT POCKET FOOD ON PUREED DIET. PLAN: MOD BARIUM SWALLOW STUDY IP OR OP IF DC CHANGE DIET TO REGULAR TYPE AND PUREED DIET WITH THIN LIQUIDS WITH UPDATED AND POSTED PRECAUTIONS OF CHECK MOUTH FOR POCKETING AND PLACE FOOD ON OPPOSITE SIDE OF WHERE SHE POCKETS FOOD OR USE LIQUID WASH TO CLEAR ORAL RESIDUE. D/W RN AND RD
--- NOTE | 2019-05-27 14:42 | NUR ---
RD ASSESSMENT & RECOMMENDATIONS SEE CARE ACTIVITY FOR COMPLETE ASSESSMENT DAILY ESTIMATED NEEDS: Needs based on Multiple wounds/ 49kg 30-40 kcals/kg 0570-8115 total kcals 1.5-2.0 g protein/kg 73-98 g total protein 25-30 mL/kg 4328-6938 total fluid mLs NUTRITION DIAGNOSIS: Increased kcal/prot intake needs R/T wound healing as evidenced by admitted w/ multiple advanced wounds, including stage 4 sacral wound, full thickness wounds @ lt tibia and rt thigh. CURRENT DIET:Cardiac, mech soft ground-> REGULAR/ PUREED MOIST PO DIET RECOMMENDATIONS: Maintain liberalized REGULAR/ texture per BURLAP MAN ADDITIONAL RECOMMENDATIONS: * Wound healing: add MVI w/ mineral 1 tab QD, Vit C 500mg BID, ZnSO4 220mg QD x 10 days Kb 1pkt BID * Ensure Enlive TID w/ meals added * Monitor PO intake closely: poor and variable at this time * Calibrated bedscale wt for accurate CBW * Monitor lytes, replete as needed
[2019-05-27] MEDS ORDERED: Tubing IV Secondary IV ONE (15:07)
[2019-05-27 16:00] VITALS: BP 148/80
--- NOTE | 2019-05-27 16:35 | Surgery Progress Note ---
Surgery Progress Note Subjective Procedure Performed Incision and drainage of left groin abscess with debridement of nonviable tissue Additional Comments packing soiled today washed and changed labs noted d/c plan for tomorrow Objective Last 24 Hour Vital Signs Date Time Temp Pulse Resp B/P (MAP) Pulse Ox O2 Delivery O2 Flow Rate FiO2 05/27/19 16:00 98.7 82 19 148/80 (102) 99 05/27/19 12:00 98.6 78 20 159/75 (103) 98 05/27/19 09:10 65 141/82 05/27/19 09:00 Room Air 05/27/19 08:00 97.7 65 18 141/82 (101) 95 05/27/19 04:00 98.0 93 20 142/79 (100) 98 05/27/19 00:00 98.1 97 18 147/81 (103) 98 05/26/19 21:01 Room Air 05/26/19 20:19 85 158/98 05/26/19 20:00 98.0 102 18 142/76 (98) 98 I&O Intake and Output 05/26/19 05/27/19 19:00 07:00 Intake Total 1080 ml Output Total 1800 ml 850 ml Balance -720 ml -850 ml Intake Oral 1080 ml Output Urine Total 1800 ml 850 ml Dressing: saturated Wound: other Cardiovascular: RSR Respiratory: decreased breath sounds Abdomen: soft, present bowel sounds Extremities: no cyanosis Laboratory Tests Test 05/27/19 05:30 White Blood Count 11.0 K/UL (4.8-10.8) H Red Blood Count 3.76 M/UL (4.20-5.40) L Hemoglobin 9.4 G/DL (12.0-16.0) L Hematocrit 29.7 % (37.0-47.0) L Mean Corpuscular Volume 79 FL (80-99) L Mean Corpuscular Hemoglobin 25.1 PG (27.0-31.0) L Mean Corpuscular Hemoglobin Concent 31.8 G/DL (32.0-36.0) L Red Cell Distribution Width 16.9 % (11.6-14.8) H Platelet Count 514 K/UL (150-450) H Mean Platelet Volume 4.7 FL (6.5-10.1) L Neutrophils (%) (Auto) 71.7 % (45.0-75.0) Lymphocytes (%) (Auto) 21.5 % (20.0-45.0) Monocytes (%) (Auto) 5.0 % (1.0-10.0) Eosinophils (%) (Auto) 1.4 % (0.0-3.0) Basophils (%) (Auto) 0.4 % (0.0-2.0) Sodium Level 140 MMOL/L (136-145) Potassium Level 3.8 MMOL/L (3.5-5.1) Chloride Level 106 MMOL/L (98-107) Carbon Dioxide Level 27 MMOL/L (21-32) Anion Gap 7 mmol/L (5-15) Blood Urea Nitrogen 12 mg/dL (7-18) Creatinine 0.4 MG/DL (0.55-1.30) L Estimat Glomerular Filtration Rate > 60 mL/min (>60) Glucose Level 85 MG/DL (74-106) Calcium Level 8.6 MG/DL (8.5-10.1) Assessment Post-op Diagnosis Left groin abscess with nonviable tissue Plan Problems: (1) Abscess of groin, left Assessment & Plan: 33-year-old female with left groin abscess. Prior intervention done and CT as below. Drain malpositioned and requires removal. Incision and drainage indicated recommended. Consent obtained from the patient's family member who is her power of city attorney Please see procedure note for details Packing and dressing twice daily We will follow with recommendations Follow-up culture - MRSA Antibiotics as per In the left inferior inguinal region, there is a low-attenuation area just deep to the inguinal crease extending into the thigh which measures 6 cm transverse by 3.2 cm AP by 2.8 cm craniocaudad. This is surrounded by a thicker rim of enhancing tissue. There is also considerable infiltration of the subcutaneous fat and musculature in this area. There are a few slightly prominent lymph nodes noted. The rectum is mildly distended by stool. This measures 7.5 cm transverse. There is equivocal mild thickening of the wall. The appendix is normal. There is no evidence of diverticulosis or diverticulitis. There are midline fascial sutures noted. No small bowel distention or small bowel wall thickening. The distal esophagus, stomach, duodenum are unremarkable. No free or loculated intraperitoneal gas or fluid is evident. The liver demonstrates a subcentimeter low-attenuation lesion within segment 8 which is too small to characterize. The gallbladder is nondistended, unremarkable. Some calcifications are seen in the left hepatic lobe. No biliary ductal dilatation. The pancreas, spleen, adrenals are unremarkable. A small calculus is seen in the upper pole left renal collecting system. No ureteral calculi, hydronephrosis, or hydroureter. The bladder contains a Barraza catheter. A small amount of gas within the bladder lumen likely relates to the Barraza catheterization. There is some scarring in the subcutaneous fat lateral to the intertrochanteric right femur. There is generalized mild edema of both proximal thighs, particularly the left. The bones demonstrate mild lumbar dextro scoliotic deformity. There is very mild anterior offset of L4 on L5. There are mild retrosacral and retrococcygeal decubitus changes. There does appear to be advanced chronic erosive changes of the coccyx. Impression: 6 x 3.2 x 2.8 cm fluid collection in the left inguinal region, likely represents an abscess. There is evidence of surrounding cellulitis Erosive changes of the coccyx. Given only minimal surrounding inflammatory change, suspect chronic. Rectum is distended by stool. There is mild wall thickening, could indicate stercoral proctitis. Evidence of prior midline abdominal surgery Subcentimeter low-attenuation right lobe liver lesion, too small to characterize , most likely benign cyst or bile hamartoma. No further follow-up necessary Other findings as noted, including lumbar dextroscoliosis, Barraza catheter, nonobstructive left upper pole renal calculus (2) Dehydration (3) UTI (urinary tract infection) (4) Disruption of tissue around surgical drain Additional Comments discussed with ID. sultana for oral abx discussed with pcp. d/c plan for tomorrow cont dressings Getachew Nelson May 27, 2019 16:35
--- NOTE | 2019-05-27 19:50 | NUR ---
HAND-OFF: Report given to mendoza.
[2019-05-27 20:00] VITALS: BP 147/75
[2019-05-27] MEDS: Vancomycin 1 GM in NS 275 ML IVPB SCH (20:15)
--- NOTE | 2019-05-27 20:30 | NUR ---
NURSE NOTES: Received patient awake and alert, respirations unlabored. No s/s of acute distress. IV fluids infusing as ordered, vancomycin 1gram hanged, infusing on 2nd pump. Barraza catheter is in place and draining yellow urine. Bed alarm is on,call light within reach.
[2019-05-27] MEDS: Enoxaparin 30mg Inj SUBQ SCH (21:41)
[2019-05-27] MEDS: cefTRIAXone 1 GM in D5W 50 ML IVPB SCH (21:55)
[2019-05-28] VITALS: BP 153/93
[2019-05-28 04:00] VITALS: BP 154/65
[2019-05-28 07:07] LABS: BASOPHILS % (AUTO) 0.4 % (0.0-2.0); EOSINOPHILS % (AUTO) 1.7 % (0.0-3.0); HEMATOCRIT 30.3 % (37.0-47.0); HEMOGLOBIN 9.6 G/DL (12.0-16.0); LYMPHOCYTES % (AUTO) 19.8 % (20.0-45.0); MEAN CORPUSCULAR VOLUME 79 FL (80-99); MONOCYTES % (AUTO) 5.5 % (1.0-10.0); NEUTROPHILS % (AUTO) 72.6 % (45.0-75.0); PLATELET COUNT 547 K/UL (150-450); RED BLOOD COUNT 3.85 M/UL (4.20-5.40); WHITE BLOOD COUNT 11.5 K/UL (4.8-10.8)
--- NOTE | 2019-05-28 07:15 | NUR ---
HAND-OFF: Report given to CRISTÓBAL Gomez. Addendum: 05/28/19 at 0730 by Ling Olsen RN Report given to CRISTÓBAL Puga
[2019-05-28 07:26] LABS: ANION GAP 12 mmol/L (5-15); BLOOD UREA NITROGEN 9 mg/dL (7-18); CARBON DIOXIDE 24 MMOL/L (21-32); CHLORIDE 106 MMOL/L (98-107); CREATININE 0.4 MG/DL (0.55-1.30); POTASSIUM 3.7 MMOL/L (3.5-5.1); SODIUM 142 MMOL/L (136-145)
[2019-05-28 08:00] VITALS: BP 148/72
--- NOTE | 2019-05-28 08:14 | NUR ---
NURSE NOTES: Patient alert to name,respirations unlabored.IV fluids infusing as ordered.Barraza catheter is in place and draining yellow urine.Breakfast at bedside,will assist patient.Bed alarm is on,call light within reach.
[2019-05-28] MEDS ORDERED: BACTRIM DS TAB1 EAC1 ORAL (10:31)
[2019-05-28] MEDS ORDERED: LOPRESSOR25 M1 ORAL (10:39)
[2019-05-28] MEDS ORDERED: APRESOLINE10 MG ORAL (10:39)
--- NOTE | 2019-05-28 10:42 | Discharge Summary ---
Discharge Summary Hospital Course Date of Admission May 22, 2019 at 16:17 Date of Discharge 05/28/19 Admitting Diagnosis sepsis, surgical drain malfunction HPI Mary Smiley is a 73 year old female who was admitted on May 22, 2019 at 16: 17 for Sepsis,Surgical Drain Malfunction Procedures Bedside L groin I & D abscess Hospital Course 73 y/o Female with dementia, admitted from SNF with increasing drainage from a subacute pigtail drain in the left groin and sacral decubitus ulcer stage IV 1. Left groin abscess with MRSA per culture. Dr. Rebolledo from ID consulted. Plan is for Bactrim DS at discharge for 7 more days. DRESSING PACKING CHANGES BID AND NEEDED. CT abdomen and pelvis: Fluid collection within the left adductor musculature measuring 5.5 x 3.6 x 6.2 cm. Surrounding inflammation suggests this may represent an abscess Surgery consultation with Dr. Fajardo. CT images reviewed with him in detail. Bedside evaluation - REMOVAL OF PRIOR PIGTAIL AT OSH and drainage completed 05/22 IV Zosyn ( stopped 05/24 ) and Vancomycin continued until today. Continue packing dressing changes. 2. Dementia Supportive care 3. Sacral decubitus stage IV Will discuss with Surgery as well. Wound care team evaluation appreciated. 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 Supportive care 5. FULL CODE by prior DPOA discussion. She was updated by me over the phone. 6. Dysphagia stable. ST follow up. 7. Mild hypokalemia. Replete. 8. VRE colonized. 9. Uncontrolled hypertension. Started metoprolol and add hydralazine PRN sbp > 160 10. Disposition SNF resident at [facility] today. Discharge Medications New Medications: Trimethoprim/Sulfamethoxazole 160/800* (Bactrim Ds Tablet*) 1 Each Tablet 1 TAB ORAL TWICE A DAY for 7 Days, #14 TAB Hydralazine HCl (Hydralazine HCl) 10 Mg Tablet 10 MG ORAL Q6HR PRN for 90 Days, #100 TAB 5 Refills prn NEEDED FOR SBP MORE THAN 160 MMHG Metoprolol Tartrate (Metoprolol Tartrate) 25 Mg Tablet 25 MG ORAL Q12HR for 90 Days, #180 TAB 5 Refills HOLD IF SBP LESS THAN 110 OR HR LESS THAN 60 Continued Medications: Acetaminophen* (Acetaminophen 325MG Tablet*) 325 Mg Tablet 650 MG ORAL EVERY 6 HOURS PRN for For Pain, TAB Ascorbic Acid* (Vitamin C*) 500 Mg Tablet 500 MG ORAL DAILY for supplement, #30 TAB 0 Refills Carvedilol (Coreg) 12.5 Mg Tablet 12.5 MG ORAL EVERY 12 HOURS for High Blood Pressure, TAB Cranberry Fruit Concentrate (Cranberry) 450 Mg Capsule 450 MG PO DAILY for UTI prophylaxis, CAP Docusate Sodium* (Colace*) 100 Mg Capsule 100 MG ORAL TWICE A DAY for Constipation, CAP Ferrous Sulfate (Ferrous Sulfate) 300 Mg/5 Ml Liquid 5 ML ORAL for Iron supplement, #473 ML 0 Refills Lactobacillus Acidophilus (Probiotic) 1 Each Capsule 1 EACH PO for supplement, CAP Magnesium Hydroxide (Milk of Magnesia) 400 Mg/5 Ml Oral.susp 30 ML ORAL TWICE A DAY for constipation, ML Magnesium Oxide (Magnesium Oxide) 400 Mg Tablet 400 MG ORAL BID for indigestion, #30 TAB 0 Refills Multivitamin (Multivitamins) 1 Each Tablet 1 EACH PO for supplement, TAB Na Phos,M-B/Na Phos,Di-Ba (Fleet Enema) 133 Ml Enema 133 ML RC DAILY PRN for Constipation, EA Oxycodone HCl/Acetaminophen (Percocet 10-325 mg Tablet) 1 Each Tablet 1 TAB ORAL Q4H PRN for 4-10 pain, #10 TAB 0 Refills Sennosides (Senna) 8.6 Mg Tablet 8.6 MG PO DAILY PRN for Constipation, TAB Zinc (Zinc) 50 Mg Tablet 220 MG ORAL for supplement, TAB Discontinued Medications: Magnesium Sulfate (Magnesium Sulfate) 2 Gm/50 Ml Piggyback 2 GM IV for supplement, BAG Ondansetron* (Zofran 4 Mg/2 Ml Vial*) 4 Mg/2 Ml Vial 4 MG IVP Q6H for nausea, VIAL Discharge Condition Upon Discharge: stable Discharge Vital Signs Last Vital Signs Date Time Temp Pulse Resp B/P (MAP) Pulse Ox O2 Delivery O2 Flow Rate FiO2 05/28/19 04:00 97.2 95 20 154/65 (94) 96 05/27/19 22:59 Room Air Discharge Disposition Patient was discharged to [facility] Discharge Diagnoses: (1) Dehydration (2) UTI (urinary tract infection) (3) Abscess of groin, left (4) Disruption of tissue around surgical drain (5) mrsa abscess (6) Hypertension (7) Sepsis Juan Lau MD May 28, 2019 10:42
[2019-05-28] MEDS: Docusate 100mg cap ORAL SCH (10:48)
--- NOTE | 2019-05-28 11:55 | NUR ---
DISCHARGE PLANNING PATIENT REFERRED BACK TO [facility] T:[phone]
[2019-05-28 12:00] VITALS: BP 150/78
--- NOTE | 2019-05-28 12:22 | NUR ---
DISCHARGE PLANNING PATIENT ACCEPTED BACK TO [facility] T:[phone] FOR NURSE TO NURSE REPORT [facility] TIME 2PM
--- NOTE | 2019-05-28 14:10 | NUR ---
NURSE NOTES: Report given to Sherrell AMBROCIO at [facility].
--- NOTE | 2019-05-28 14:56 | NUR ---
DISCHARGE SWALLOW/SPEECH THERAPY SUMMARY: SEEN FOR DYSPHAGIA,SEE SWALLOW EVALUATION REPORT. GOALS MET FOR STAFF EDUCATED/TRAINED IN ASPIRATION PRECAUTIONS. GOALS NOT MET FOR INTAKE 25-50% ON PUREED AND THIN LIQUIDS NEEDS HIGH CALORIE SUPPLEMENTS AND ASP PRECAUTIONS PLAN: F/UP WITH FEATHER DUSTER WINDER AT SNF FOR SKILLED DYSPHAGIA MANAGEMENT AND TX COMPLETE MOD BARIUM SWALLOW STUDY OP (UNABLE TO COMPLETE IP DUE TO SCHEDULE CONFLICTS).
--- NOTE | 2019-05-28 15:06 | Surgery Progress Note ---
Surgery Progress Note Subjective Procedure Performed Incision and drainage of left groin abscess with debridement of nonviable tissue Symptoms: improved, tolerating diet, voiding well, passing flatus, BM, pain decreased Objective Last 24 Hour Vital Signs Date Time Temp Pulse Resp B/P (MAP) Pulse Ox O2 Delivery O2 Flow Rate FiO2 05/28/19 12:00 98.1 88 22 150/78 (102) 93 05/28/19 10:48 111 137/69 05/28/19 09:00 Room Air 05/28/19 08:00 98.2 84 18 148/72 (97) 97 05/28/19 04:00 97.2 95 20 154/65 (94) 96 05/28/19 00:00 97.8 82 20 153/93 (113) 98 05/27/19 22:59 Room Air 05/27/19 21:40 91 147/75 05/27/19 20:00 98.2 91 20 147/75 (99) 99 05/27/19 16:00 98.7 82 19 148/80 (102) 99 I&O Intake and Output 05/27/19 05/28/19 19:00 07:00 Intake Total 300 ml Output Total 1000 ml Balance -700 ml IV Total 300 ml Output Urine Total 1000 ml Dressing: saturated Wound: clean Cardiovascular: RSR Respiratory: clear Abdomen: soft, flat, non-tender, present bowel sounds Extremities: no edema, no tenderness, no cyanosis Laboratory Tests Test 05/28/19 05:50 White Blood Count 11.5 K/UL (4.8-10.8) H Red Blood Count 3.85 M/UL (4.20-5.40) L Hemoglobin 9.6 G/DL (12.0-16.0) L Hematocrit 30.3 % (37.0-47.0) L Mean Corpuscular Volume 79 FL (80-99) L Mean Corpuscular Hemoglobin 24.9 PG (27.0-31.0) L Mean Corpuscular Hemoglobin Concent 31.6 G/DL (32.0-36.0) L Red Cell Distribution Width 17.0 % (11.6-14.8) H Platelet Count 547 K/UL (150-450) H Mean Platelet Volume 4.7 FL (6.5-10.1) L Neutrophils (%) (Auto) 72.6 % (45.0-75.0) Lymphocytes (%) (Auto) 19.8 % (20.0-45.0) L Monocytes (%) (Auto) 5.5 % (1.0-10.0) Eosinophils (%) (Auto) 1.7 % (0.0-3.0) Basophils (%) (Auto) 0.4 % (0.0-2.0) Sodium Level 142 MMOL/L (136-145) Potassium Level 3.7 MMOL/L (3.5-5.1) Chloride Level 106 MMOL/L (98-107) Carbon Dioxide Level 24 MMOL/L (21-32) Anion Gap 12 mmol/L (5-15) Blood Urea Nitrogen 9 mg/dL (7-18) Creatinine 0.4 MG/DL (0.55-1.30) L Estimat Glomerular Filtration Rate > 60 mL/min (>60) Glucose Level 83 MG/DL (74-106) Calcium Level 9.0 MG/DL (8.5-10.1) Assessment Post-op Diagnosis Left groin abscess with nonviable tissue Plan Problems: (1) Abscess of groin, left Assessment & Plan: 33-year-old female with left groin abscess. Prior intervention done and CT as below. Drain malpositioned and requires removal. Incision and drainage indicated recommended. Consent obtained from the patient's family member who is her power of trial attorney Please see procedure note for details Packing and dressing twice daily We will follow with recommendations Follow-up culture - MRSA Antibiotics as per In the left inferior inguinal region, there is a low-attenuation area just deep to the inguinal crease extending into the thigh which measures 6 cm transverse by 3.2 cm AP by 2.8 cm craniocaudad. This is surrounded by a thicker rim of enhancing tissue. There is also considerable infiltration of the subcutaneous fat and musculature in this area. There are a few slightly prominent lymph nodes noted. The rectum is mildly distended by stool. This measures 7.5 cm transverse. There is equivocal mild thickening of the wall. The appendix is normal. There is no evidence of diverticulosis or diverticulitis. There are midline fascial sutures noted. No small bowel distention or small bowel wall thickening. The distal esophagus, stomach, duodenum are unremarkable. No free or loculated intraperitoneal gas or fluid is evident. The liver demonstrates a subcentimeter low-attenuation lesion within segment 8 which is too small to characterize. The gallbladder is nondistended, unremarkable. Some calcifications are seen in the left hepatic lobe. No biliary ductal dilatation. The pancreas, spleen, adrenals are unremarkable. A small calculus is seen in the upper pole left renal collecting system. No ureteral calculi, hydronephrosis, or hydroureter. The bladder contains a Barraza catheter. A small amount of gas within the bladder lumen likely relates to the Barraza catheterization. There is some scarring in the subcutaneous fat lateral to the intertrochanteric right femur. There is generalized mild edema of both proximal thighs, particularly the left. The bones demonstrate mild lumbar dextro scoliotic deformity. There is very mild anterior offset of L4 on L5. There are mild retrosacral and retrococcygeal decubitus changes. There does appear to be advanced chronic erosive changes of the coccyx. Impression: 6 x 3.2 x 2.8 cm fluid collection in the left inguinal region, likely represents an abscess. There is evidence of surrounding cellulitis Erosive changes of the coccyx. Given only minimal surrounding inflammatory change, suspect chronic. Rectum is distended by stool. There is mild wall thickening, could indicate stercoral proctitis. Evidence of prior midline abdominal surgery Subcentimeter low-attenuation right lobe liver lesion, too small to characterize , most likely benign cyst or bile hamartoma. No further follow-up necessary Other findings as noted, including lumbar dextroscoliosis, Barraza catheter, nonobstructive left upper pole renal calculus (2) Dehydration (3) UTI (urinary tract infection) (4) Disruption of tissue around surgical drain Additional Comments d/c today cont with packing and dressing Getachew Reynoso May 28, 2019 15:06
[2019-05-28] MEDS ORDERED: NS 275ml ONE (15:10)
--- NOTE | 2019-05-28 15:15 | NUR ---
NURSE NOTES: Patient discharge to [facility] as ordered,[facility] will transport patient.IV removed.patient olivera catheter remains in place,patient has sacral decub. Pictures taken of patient wounds.patient sister aware of patient discharge.patient has dentures in mouth,no other belongings.
== END 2019-05-28 15:16 | DRG 907 ==
LOC: EDBD 15:26 → EMR 16:11 → 3E 16:17 → EDBEDREQ 20:20 → 4E 05-23 23:26
PROC: 0J9C0ZZ Drainage of Pelvic Region Subcutaneous Tissue and Fascia, Open Approach (ICD-10-PCS; principal; 2019-05-23)
PROC: 0KBM0ZZ Excision of Perineum Muscle, Open Approach (ICD-10-PCS; principal; 2019-05-23)
DX: T85.698A Other mechanical complication of other specified internal prosthetic devices, implants and grafts, initial encounter (principal); L89.154 Pressure ulcer of sacral region, stage 4; L02.214 Cutaneous abscess of groin; N39.0 Urinary tract infection, site not specified; B95.62 Methicillin resistant Staphylococcus aureus infection as the cause of diseases classified elsewhere; G30.9 Alzheimer's disease, unspecified; F02.80 Dementia in other diseases classified elsewhere, unspecified severity, without behavioral disturbance, psychotic disturbance, mood disturbance, and anxiety; B96.4 Proteus (mirabilis) (morganii) as the cause of diseases classified elsewhere; E11.9 Type 2 diabetes mellitus without complications; I10 Essential (primary) hypertension; Z89.519 Acquired absence of unspecified leg below knee; E87.6 Hypokalemia; R13.10 Dysphagia, unspecified; E86.0 Dehydration
CPT/HCPCS: 36415; 71045; 74177; 80048; 80053; 80202; 81003; 82550; 83605; 83690; 83735; 83880; 84100; 84443; 84484; 85025; 85610; 85730; 86850; 86900; 86901; 87040; 87070; 87075; 87081; 87086; 87181; 87205; 93005; 96365; 96368; 99285; J7030; J8499